=== PATIENT | male | born 1945 | race Caucasian/White ===

== ENCOUNTER 2016-04-09 21:35 | Emergency (ER) | payer MEDICARE, OTHER ==
[2016-04-09 21:35] VITALS: BP 113/80
--- OUTSIDE RECORDS SUMMARY | 2016-04-09 21:51 | XMS REPORT | Continuity of Care Document ---
:1945 Author Organization [facility] ([facility]) Address [address] [place] [address] Phone [phone] Care Team Providers Name Role Phone Chase Padron Primary Care Provider [phone] Source Comments This disclosure is being made pursuant to the Care Everywhere program, applicable federal and state laws, and may not contain all informaitonavailable regarding this patient.[facility] ([facility]) Active Allergies and Adverse Reactions Allergen Noted Date Severity Reactions Comments Penicillins 03/23/2014 Pruritus Confused - Pt states that he doesn't think he is allergic to penicillins Sulfa (Sulfonamide 03/23/2014 OTHER Out of , confused Antibiotics) Current Medications Prescription Sig. Disp. Refills Start Date End Date Status SERTRALINE 50 mg Take 50 mg by mouth 03/12/2014 Suspended tablet daily. simvastatin 20 mg Take 20 mg by mouth Suspended tablet every evening. aspirin 81 mg EC Take 81 mg by mouth Suspended tablet daily. levothyroxine 88 mcg Take 88 mcg by Suspended tablet mouth daily. amiodarone 200 mg Take 200 mg by Suspended tablet mouth daily. carvedilol 3.125 mg Take 3.125 mg by Suspended tablet mouth 2 times daily with meals. pregabalin (LYRICA) Take 300 mg by Suspended 300 mg capsule mouth 2 times daily. ALPRAZOLAM 0.5 mg 0.5 mg 3 times 03/10/2014 Suspended tablet daily as needed. albuterol 2.5 mg/3 mL Use 3 mL by Suspended inhalation solution inhalation every 4 hours as needed. acetaminophen 325 mg Take 2 Tabs by 30 Tab 11 05/06/2014 Suspended tablet mouth every 4 hours as needed. Indications: PAIN apixaban (ELIQUIS) 5 Take 5 mg by mouth Suspended mg tablet 2 times daily budesonide-formoterol Use 2 Puffs by Suspended (SYMBICORT) 80-4.5 inhalation 2 times mcg/Actuation inhaler daily fluticasone 50 Use 2 Sprays into Suspended mcg/Actuation nasal both nostrils daily spray losartan-hydrochlorot Take 1 tablet by Suspended hiazide 50-12.5 mg mouth daily per tablet oxyCODONE-acetaminoph Take 1 tablet by Suspended en 5-325 mg per mouth every 4 hours tablet as needed Do Not exceed 4000 mg of acetaminophen per 24 hours. pantoprazole 40 mg EC Take 40 mg by mouth Suspended tablet daily cholecalciferol Take 1,000 Units by Suspended (VITAMIN D3) 1,000 mouth daily unit tablet Active Problems Problem Noted Date Cerebral aneurysm, nonruptured 05/06/2014 Transient alteration of awareness 03/27/2014 Hypokalemia 03/24/2014 Acute kidney injury 03/24/2014 CAD (coronary artery disease) 03/23/2014 Essential hypertension 03/23/2014 Hypothyroidism due to acquired atrophy of thyroid 03/23/2014 Hyperlipidemia 03/23/2014 Chronic CHF (congestive heart failure) 03/23/2014 Chronic pain 03/23/2014 Systemic inflammatory response syndrome (sirs) of non-infectious origin 2014 with acute organ dysfunction Metabolic encephalopathy 03/23/2014 Urinary retention 03/23/2014 Fever and chills 03/23/2014 Most Recent Encounters Date Type Specialty Providers Description 03/07/2016 Orders/Notes Neurosurgery Roby Anthony MD 03/04/2016 Hospital Encounter Radiology Ivonne Freitas MD Chief Comp: Patient Reported Reason For Visit 02/28/2016 Office Visit Roby Spring MD Dx: Cerebral aneurysm , nonruptured (Primary Dx) 01/31/2016 Office Visit Roby Spring MD Chief Comp: Patient Reported Reason For Visit 01/10/2016 Office Visit Roby Spring MD Chief Comp: Patient Reported Reason For Visit Immunizations Name Dates Previously Given Next Due Influenza, unspecified 03/23/2014,11/30/2013 Pneumococcal, unspecified 11/30/2013 Social History Tobacco Use Types Packs/Day Years Used Date Former Smoker Cigarettes 1.5 50 Quit: 03/02/2013 Smokeless Tobacco: Never Used Tobacco Cessation:Counseling Given: Yes Comments: Alcohol Use Drinks/Week oz/Week Comments No Last Filed Vital Signs Vital Sign Reading Time Taken Blood Pressure 110/70 11/13/2014 12:30 PM CDT Pulse 53 11/13/2014 1:00 PM CDT Temperature 36.1 C (97 F) 11/13/2014 11:30 AM CDT Respiratory Rate 16 11/13/2014 12:30 PM CDT Height 1.85 m (6' 0.83") 11/13/2014 9:04 AM CDT Weight 84.2 kg (185 lb 10 oz) 11/13/2014 9:04 AM CDT Body Mass Index 24.6 11/13/2014 9:04 AM CDT Oxygen Saturation 98% 11/13/2014 1:00 PM CDT Plan of Care Health Maintenance Due Date Last Done Comments Hepatitis B Vaccine (1 of 3 - Primary 1945 Series) Tdap Vaccine 06/10/1958 Lipid Disorder Screening 06/10/1965 Td Vaccine 06/10/1965 Colonoscopy 06/10/1997 Prostate Cancer Screening 06/10/1997 Zoster Vaccine 2007 Pneumococcal Vaccine (1 of 2 - PCV13) 06/10/2012 Influenza Vaccine: Seasonal (#1) 10/01/2015 03/23/2014, 11/30/2013 HCV Screening Completed 03/25/2014 Results from Last [address] - STORE ONLY (03/04/2016 3:40 PM)
== END 2016-04-09 21:45 | disposition left against medical advice (07) ==
LOC: ER 21:35
DX: Z53.21 Procedure and treatment not carried out due to patient leaving prior to being seen by health care provider (principal)

== ENCOUNTER 2016-04-12 07:50 | Emergency (ER) | payer MEDICARE, OTHER ==
--- NOTE | 2016-04-12 08:04 | ERNOTE ---
ER Male HPI Date of Service: 04/12/16 Stated Complaint: CATHETER REMOVED Time Seen by Provider: 04/12/16 07:56 Source: patient Exam Limitations: no limitations Immunizations: IMMUNIZATION HX Immunizations Up to Date Yes History of Influenza Vaccine Yes Hx Pneumococcal Vaccination Yes Allergies/Adverse Reactions: Allergies Sulfa (Sulfonamide Antibiotics) [Sulfa(Sulfonamide Antibiotics)] Allergy (Severe , Verified 06/19/13 07:13) Other confusion Penicillins Allergy (Intermediate, Verified 06/19/13 07:13) Hives Home Medications: HOME MEDICATIONS Acetaminophen [Tylenol] 650 mg PO Q4H PRN 01/13/16 [Last Taken Unknown] Alprazolam [Xanax Xr] 0.5 mg PO QID 01/13/16 [Last Taken Unknown] Apixaban [Eliquis] 5 mg PO BID 01/13/16 [Last Taken Unknown] Bisacodyl [Dulcolax Suppository] 10 mg RC DAILY PRN 01/13/16 [Last Taken Unknown ] Carvedilol [Coreg] 3.125 mg PO DAILY 01/13/16 [Last Taken Unknown] Ferrous Sulfate [Iron] 325 mg PO DAILY 01/13/16 [Last Taken Unknown] Levalbuterol HCl [Xopenex] 0.63 mg IH Q3H PRN 01/13/16 [Last Taken Unknown] Levothyroxine Sodium [Synthroid] 88 mcg PO DAILY 01/13/16 [Last Taken Unknown] Magnesium Hydroxide [Milk Of Magnesia] 30 ml PO DAILY PRN 01/13/16 [Last Taken Unknown] Oxycodone HCl/Acetaminophen [Percocet 10-325 mg Tablet] 1 each PO QID 01/13/16 [ Last Taken Unknown] Polyethylene Glycol 3350 [Miralax] 17 gm PO DAILY 01/13/16 [Last Taken Unknown] - History of Present Illness Narrative: Patient has a jaimes catheter in pending prostate surgery. When he woke up this morning the Jaimes had become dislodged at some point overnignt and wa out. He states he has just been dribbling. No fevers. No abdominal pain. No new Sx. No pain Timing: Present: constant Quality: Present: other - catheter out Onset Location: Present: other - Jaimes Activities at Onset: Present: other - woke up with the problem Prior Abdominal Problems: Present: other - Jaimes in place awaiting Prostate surgery Review of Systems - Review of Systems Constitutional: Absent: chills Respiratory: Present: no symptoms reported Cardiology: Present: no symptoms reported Gastrointestinal/Abdominal: Present: no symptoms reported - Patient's Past Medical History Patient History - Medical: Chronic Pain - on daily Percocet Patient History - Cardiac/Respiratory: Coronary Heart Disease, Hypertension, Myocardial Infarction, Pneumonia Patient History - Cancer: No Hx of Cancer Patient History - Surgical Procedures: Cholecystectomy, Other - Immunizations Immunizations Up to Date: Yes Hx Pneumococcal Vaccination: Yes History of Influenza Vaccine: Yes Physical Exam - Physical Exam General Appearance: Present: alert, no apparent distress Eye Exam: Normal inspection: bilateral, PERRL: bilateral Ears, Nose, Throat: Present: normal ENT inspection Neck: Present: normal inspection Respiratory: Present: no respiratory distress, no accessory muscle use, lungs clear Cardiovascular/Chest: Present: regular rate, rhythm Gastrointestinal/Abdominal: Present: normal bowel sounds, nontender, nondistended, soft Male Genitals Exam: Present: other - Jaimes has come out. No ither grossabnormalities noted. Neurological Exam: Present: alert, no motor/sensory deficits Skin Exam: Present: warm/dry ED Progress - Vital Signs Patient's Vital Signs:: I have reviewed the patient's vital signs. - Progress/Reassessment Progress Note-Subjective: 04/12/16 08:02 Nursing replaced jaimes catheter, no other needs or complaints at this time. I discussed warning signs and reasons to return as well as the need for close f/u. Departure Clinical Impression: Jaiems catheter problem - Departure Disposition: Home self-care Condition: Stable Instructions: Jaimes Catheter Care, Adult Additional Instructions: Call your urologist Thursday with telephone report of what occurred. Return here for fever, trouble with the Jaimes catheter or if your condition worsens or changes in any way.
--- OUTSIDE RECORDS SUMMARY | 2016-04-12 08:06 | XMS REPORT | Continuity of Care Document ---
:1945 Author Organization [employer] [place] [address] Care Team Providers Name Role Phone Jorge Padron Primary Care Provider [phone] Source Comments This disclosure is being made pursuant to the [employer] program and maynot contain all information available regarding this patient.[employer] [facility] [facility] Active Allergies and Adverse Reactions Allergen Noted Date Severity Reactions Comments Hydrochlorothiazide 01/31/2016 Unknown Levaquin 04/01/2016 Low Altered Mental Status Penicillins 11/23/2013 Other (See Comments) Sulfa Antibiotics 11/23/2013 Other (See Comments) Sulfamethoxazole-Trimethoprim 11/23/2013 Other (See Comments) Current Medications Be aware that medications may not be up to date as of this document. Alwaysverify current medications with the patient. Prescription Sig. Disp. Refills Start Date End Date Status albuterol Inhale into Active (PROVENTIL) (2.5 the lungs. 4 MG/3ML) 0.083% puff(s) By nebulizer solution Mouth Daily prn ALPRAZolam (XANAX) Take 0.5 mg Active 0.5 MG tablet by mouth 3 (three) times daily. oxyCODONE-acetaminop Take 10-325 Active hen (PERCOCET) mg by mouth. 10-325 MG per tablet 1 tab(s) By Mouth 4 Times A Day aspirin 81 MG tablet Take 81 mg by Active mouth daily. levothyroxine Take 88 mcg Active (SYNTHROID, by mouth LEVOTHROID) 88 MCG every tablet morning. budesonide-formotero Inhale 2 Active l (SYMBICORT) 80-4.5 puffs into MCG/ACT inhaler the lungs 2 (two) times daily. vitamin D, Take 2,000 Active cholecalciferol, Units by 1000 UNITS tablet mouth daily. apixaban (ELIQUIS) 5 Take 1 tablet 60 tablet 0 11/29/2014 Active MG TABS tablet by mouth 2 (two) times daily. amiodarone TAKE ONE 30 tablet 11 06/21/2015 Active (PACERONE) 200 MG TABLET BY tablet MOUTH EVERY DAY famotidine (PEPCID) Take 1 tablet 06/12/2015 Active 20 MG tablet by mouth daily. losartan-hydrochloro TAKE ONE 30 tablet 11 08/23/2015 Active thiazide (HYZAAR) TABLET BY 50-12.5 MG per MOUTH EVERY tablet DAY bisacodyl (DULCOLAX) Take 5 mg by Active 5 MG EC tablet mouth daily as needed for Constipation. Takes 8 tabs daily simvastatin (ZOCOR) Take 20 mg by Active 20 MG tablet mouth nightly. oxybutynin Take 1 tablet 45 tablet 0 03/31/2016 Active (DITROPAN) 5 MG by mouth 3 7 tablet (three) times daily. FLUoxetine (PROZAC) Take 1 03/26/2016 Active 10 MG capsule capsule by mouth daily. senna 8.6 mg tablet Take 1 tablet Active by mouth daily as needed for Constipation. cephALEXin (KEFLEX) Take 1 15 capsule 0 04/09/2016 Active 500 MG capsule capsule by mouth 3 (three) times daily. fluticasone by Nasal Discontinued (FLONASE) 50 MCG/ACT route. 1 7 nasal spray spray(s) each nostril 2 times per day fluticasone-salmeter Inhale into Discontinued ol the lungs. 1 7 (FLUTICASONE-SALMETE puff(s) By ROL) 250-50 MCG/DOSE Mouth 2 Times AEPB A Day carvedilol (COREG) Take 3.125 mg 05/18/2015 Discontinued 6.25 MG tablet by mouth 7 daily. ondansetron 01/28/2016 Discontinued (ZOFRAN-ODT) 4 MG 7 disintegrating tablet potassium chloride 01/04/2016 Discontinued SA (K-DUR,KLOR-CON) 7 20 MEQ tablet linaclotide Take 1 16 capsule 0 02/04/2016 Discontinued (LINZESS) 290 MCG capsule by 7 capsule mouth every morning before breakfast. linaclotide Take 1 28 capsule 0 02/26/2016 Discontinued (LINZESS) 290 MCG capsule by 7 capsule mouth every morning before breakfast. furosemide (LASIX) Take 20 mg by 12/17/2015 Discontinued 20 MG tablet mouth daily. 7 ciprofloxacin Take 1 tablet 14 tablet 0 03/31/2016 Discontinued (CIPRO) 500 MG by mouth 2 7 tablet (two) times daily. cephALEXin (KEFLEX) Take 1 21 capsule 0 03/31/2016 500 MG capsule capsule by 7 mouth 3 (three) times daily. Hospital, Clinic, or Other Ordered Dose Route Frequency Start Date End Date Status Facility Administered Medication regadenoson (LEXISCAN) 0.4mg IV Once 04/09/2016 04/09/2016 Ended injection Active Problems Problem Noted Date Chest pain 04/01/2016 Dyspnea 04/01/2016 Preop cardiovascular exam 04/01/2016 Hypoxia 04/01/2016 intermediate current use of anticoagulant 04/01/2016 Bladder neck contracture 03/27/2016 COPD without exacerbation (HCC) 03/25/2016 BPH with urinary obstruction 09/04/2015 Retention of urine 09/04/2015 Fall 08/17/2014 Hypotension 08/17/2014 Brain aneurysm 03/14/2014 Personal history of tobacco use, presenting hazards to health 03/24/2013 Overview: Overview: RAJ TONG MD Atrial fibrillation ([facility]) 11/24/2012 Overview: Overview: RAJ TONG MD Primary cardiomyopathy ([facility]) 04/14/2012 Overview: Overview: recovered to normal RAJ TONG MD Coronary atherosclerosis of [place] coronary artery 04/14/2012 Overview: Overview: RAJ TONG MD Hypercholesterolemia 04/14/2012 Overview: Overview: RAJ TONG MD Essential hypertension 04/14/2012 Overview: Overview: RAJ TONG MD Encounter for long-term (current) use of other medications 04/14/2012 Overview: Overview: RAJ TONG MD Postsurgical percutaneous transluminal coronary angioplasty status 04/14/2012 Overview: Overview: RAJ TONG MD Resolved Problems Problem Noted Date Resolved Date Obstructive chronic bronchitis without exacerbation (HCC) 03/25/20162016 Atrial fibrillation (HCC) 04/14/2012 09/05/2015 Overview: Overview: now in NSR RAJ TONG MD Most Recent Encounters Date Type Specialty Providers Description 04/11/2016 Telephone Urology Suzette Fernandez, [facility] 04/10/2016 Clinical Support Urology Jackson Solomon Bladder neck contracture M PASharonC (Primary Dx) 04/10/2016 Orders Only Cardiology Mayra Saavedra Decreased cardiac F, RN ejection fraction (Primary Dx); Abnormal cardiovascular stress test; SOB (shortness of breath); Preop cardiovascular exam 04/10/2016 Telephone UrologSuzette Juan, [facility] arrangements 04/09/2016 Clinical Support Nuclear Medicine Raj Tong Pre-operative MD Deyanira cardiovascular Makeda Bull examination (Primary Dx); M, RT Chest pain, unspecified type 04/09/2016 Office Visit UrologAmrit Muro Preop testing (Primary MD Jillian Dx); Bladder neck contracture; Benign non-nodular prostatic hyperplasia with lower urinary tract symptoms; BPH with urinary obstruction 04/09/2016 Telephone UrologNickie Chavez RN 04/08/2016 Orders Only Provider, Not In System 04/08/2016 Transcribe Orders Nuclear Medicine Makeda Bull Pre-operative M, RT cardiovascular examination (Primary Dx); Chest pain, unspecified type 04/07/2016 Orders Only Provider, Not In System 04/02/2016 Telephone Candice Philippe RN Other 04/02/2016 Telephone Candice Philippe RN Other 04/01/2016 Office Visit Cardiology Raj Tong Chest pain, unspecified FMD type (Primary Dx); Pre-operative cardiovascular examination; Dyspnea on exertion; Preop cardiovascular exam; Hypoxia; Personal history of tobacco use, presenting hazards to health; Encounter for long-term (current) use of other medications; Primary cardiomyopathy (HCC); Hypercholesterolemia; Essential hypertension; Atherosclerosis of [place] coronary artery of [place] heart without angina pectoris; Brain aneurysm 04/01/2016 Clinical Support Amrit Hercules Bladder neck contracture MD Jillian (Primary Dx); Retention of urine; BPH with urinary obstruction 04/01/2016 Telephone Suzette Lewis, [facility] 03/31/2016 Office Visit UrologGalo Brewster bladder Augustin Walsh MD emptying (Primary Dx) 03/31/2016 Refill UrologNickie Chavez RN 03/27/2016 Procedure visit Urology Amrit Lazcano Preop testing (Primary MD Jillian Dx); BPH with urinary obstruction; Bladder neck contracture; Atrial fibrillation, unspecified type (HCC); Primary cardiomyopathy (HCC); Essential hypertension; COPD without exacerbation (HCC); Retention of urine 03/27/2016 Orders Only Provider, Not In System 03/24/2016 Telephone Urology Kirti Brooks, Medication Management RN 03/18/2016 Office Visit Urology Jackson Solomon Urinary hesitancy PATO Olvera (Primary Dx); Slowing of urinary stream 03/17/2016 Telephone Urology Suzette Fernandez Urinary Retention J, [employer] 03/13/2016 Office Visit Urology Jackson Solomon Retention of urine PATO Olvera (Primary Dx); BPH with urinary obstruction 03/13/2016 Telephone Urology Candice Willett RN Telephone Call 03/04/2016 Telephone Gastroenterology Nabil Kang - TC from Pt c/o Mallorie Worley RN abdominal and rectal pain. 02/26/2016 Scanned Document Provider, Not In System 02/26/2016 Telephone Gastroenterology Kayce Giles Medication Management Sharon Hoffman RN PT.'S DAUGHTER CAME IN FOR LINZESS SAMPLES. SENT LINZESS 290 MCG 28 CAPSULES LOT# [id number] EXP. 02/14/2016 Data Import 02/11/2016 Clinical Support Cardiology Raj Tong Atrial fibrillationDeyanira MD unspecified type (HCC) Mara Arevalo, ANAHI 02/11/2016 Office Visit Cardiology Raj Tong F, MD unspecified type (HCC) (Primary Dx); Brain aneurysm; Atherosclerosis of [place] coronary artery of [place] heart without angina pectoris; Essential hypertension; Hypercholesterolemia; Primary cardiomyopathy (HCC); Encounter for long-term (current) use of other medications; Personal history of tobacco use, presenting hazards to health; Postsurgical percutaneous transluminal coronary angioplasty status 02/04/2016 Office Visit Gastroenterology Juju, Drug-induced constipation Latrell Blackmon MD (Primary Dx) 02/04/2016 Telephone Gastroenterology Kayce Giles Medication Management Sharon Hoffman RN LM FOR PT TO CALL OFFICE. 01/31/2016 Abstract Gastroenterology Kayce Giles RN 01/30/2016 Scanned Document Gastroenterology Provider, Not In System 01/28/2016 Telephone Gastroenterology Kang, Other - Pt called Mallorie Worley RN questioning cancelation of March, appt with Dr. Nikita Matute. Social History Tobacco Use Types Packs/Day Years Used Date Former Smoker Smokeless Tobacco: Never Used Tobacco Cessation:Ready to Quit: Yes; Counseling Given: Yes Comments: Alcohol Use Drinks/Week oz/Week Comments No Alcoholic Drinks/day: ALCOHOL USE: NON-DRINKER Last Filed Vital Signs Vital Sign Reading Time Taken Blood Pressure 134/78 04/09/2016 11:25 AM GRAPE CRUSHER Pulse 90 04/01/2016 2:23 PM GRAPE [employer]HER Temperature 36.4 C (97.6 F) 03/18/2016 10:45 AM GRAPE CR[employer]HER Respiratory Rate 20 03/18/2016 10:45 AM GRAPE CRUSHER Height 1.88 m (6' 2") 02/04/2016 2:13 PM GRAPE CR[employer]HER Weight 63.504 kg (140 lb) 04/01/2016 2:23 PM GRAPE CR[employer]HER Body Mass Index 17.97 04/01/2016 2:23 PM GRAPE CR[employer]HER Oxygen Saturation 87% 04/01/2016 2:23 PM GRAPE CRUSHER Plan of Care Patient Goal Type Goal Blood Pressure Blood Pressure below 140/90 Date Type Specialty Providers Description 04/18/2016 Appointment Cardiology 10/13/2016 Appointment Cardiology Raj Tong MD [address] [facility] [place] [phone] (Fax) Health Maintenance Due Date Last Done Comments Hepatitis C Screening 06/10/1965 Tetanus/Pertussis (1 - Tdap) 06/10/1966 Colonoscopy 06/10/1997 Well Adult Visit 06/10/1997 Zoster Vaccine 60+ 2007 AAA Screening (Medicare Covered) 06/10/2012 Pneumococcal Low/Medium Risk 65+ (1 of 2 - PCV13) 06/10/2012 Influenza Immunization (#1) 2015 Results from Last 3 Months NM HEART MUSCLE SPECT MULTIPLE (04/09/2016 2:48 PM) Narrative [facility] [place] [id number] MPI Imaging Report Patient Name: JORGE MADERA MPatient ID: [id number] : 1945Study Date: 04/09/2016 2:48:15 PM Gender: MTech: Height(Inch): Weight(LB): 140 Ref. Physician: KATHI TONGocation: [id number] Quality: Good BSA: Procedures: Pharmacologic SPECT/CT Report.: Patient was NPO, patient did not have any caffeine within the last 12 hours. Myocardial perfusion imaging with Sestamibi SPECT/CT at rest and post regadenoson (Lexiscan) infusion. SPECT/CT images were acquired at approximately one hour after each injection. Images were reformatted in the short axis, vertical, and horizontal long axis planes. Indications: Chest pain. Pre-Op. Findings: Supervising Nurse: Larisa. Supervising Physician: Raj Tong MD. Procedure Data: Patient was injected with the following amount of Sestamibi Tc-99m at rest: 12.4 mCi. Patient was injected with the following amount of Sestamibi Tc-99m at stress: 36.6 mCi. The injection was performed on the following vein: RAC. 0.4mg of Lexiscan was administered. Baseline HR 53. Peak HR 75. Predicted Maximal HR 152. Baseline BP 160/82. Peak BP 160/82. Double Product 9900 BPM*mmHg. Cardiac Symptoms: Stress related symptoms include : nausea and shortness of breath. Symptoms were treated with : rest. ECG Post Pharm: No diagnostic ST changes. defect 1: Location of defect is in the: apical wall and inferior wall. PostStress LV Function and Wall Motion: Left Ventricular Ejection Fraction is 30 %. Study Quality: Poor study quality. Conclusions: No ECG evidence of ischemia. Poor study quality. Myocardial perfusion imaging is abnormal. A fixed transmural perfusion defect is noted in the distal inferolateral wall suggestive of old infarct in probably a dominant LCX distribution. No reversibility or ischemia in that area. Mild apical ischemia. EF calculated at 30%, normal tid ratio. Electronically Signed By: Dr. Raj Tong MD, [facility], [facility] 2016-04-10 08:41:27-0600 Electronically Signed By: Dr. Raj Tong MD, [facility], [facility] 2016-04-10 08:41:37-0600 CC: CC: Procedure Note Naeem, External Ris In - Jyoti Apr 10, 2016 8:42 [place] [address] MPI Imaging Report Patient Name: JORGE MADERA MPatient ID: [id number] : 1945Study Date: 04/09/2016 2:48:15 PM Gender: [facility]: Height(Inch): Weight(LB): 140 Ref. Physician: KATHI TONGocation: [id number] Quality: Good BSA: Procedures: Pharmacologic SPECT/CT Report.: Patient was NPO, patient did not have any caffeine within the last 12 hours. Myocardial perfusion imaging with Sestamibi SPECT/CT at rest and post regadenoson (Lexiscan) infusion. SPECT/CT images were acquired at approximately one hour after each injection. Images were reformatted in the short axis, vertical, and horizontal long axis planes. Indications: Chest pain. Pre-Op. Findings: Supervising Nurse: Larisa. Supervising Physician: Raj Tong MD. Procedure Data: Patient was injected with the following amount of Sestamibi Tc-99m at rest: 12.4 mCi. Patient was injected with the following amount of Sestamibi Tc-99m at stress: 36.6 mCi. The injection was performed on the following vein: RAC. 0.4mg of Lexiscan was administered. Baseline HR 53. Peak HR 75. Predicted Maximal HR 152. Baseline BP 160/82. Peak BP 160/82. Double Product 9900 BPM*mmHg. Cardiac Symptoms: Stress related symptoms include : nausea and shortness of breath. Symptoms were treated with : rest. ECG Post Pharm: No diagnostic ST changes. defect 1: Location of defect is in the: apical wall and inferior wall. PostStress LV Function and Wall Motion: Left Ventricular Ejection Fraction is 30 %. Study Quality: Poor study quality. Conclusions: No ECG evidence of ischemia. Poor study quality. Myocardial perfusion imaging is abnormal. A fixed transmural perfusion defect is noted in the distal inferolateral wall suggestive of old infarct in probably a dominant LCX distribution. No reversibility or ischemia in that area. Mild apical ischemia. EF calculated at 30%, normal tid ratio. Electronically Signed By: Dr. Raj Tong MD, [facility], [facility] 2016-04-10 08:41:27-0600 Electronically Signed By: Dr. Raj Tong MD, [facility], [facility] 2016-04-10 08:41:37-0600 CC: CC: Urine culture (04/09/2016 11:44 AM)Only the most recent of3 resultswithin the time period is included. Component Value Range Urine Culture, Routine Microbiology resultsComment: CARLOS TYPE Cath RESULT NO GROWTH Specimen Urine,Straight Cath Narrative Testing performed at [facility], [address] [place] [address].Counter [employer] Micha Mar MD Specimen: UACUL Urinalysis with microscopic (04/01/2016 2:07 PM)Only the most recent of2 resultswithin the time period is included. Component Value Range *CARLOS TYPE Cath Color, Fluid [place](A) Yellow Clarity, Fluid Turbid(A) Clear Specific [place] 1.023 1.001-1.035 pH 7.5 5.0-8.0 Leukocyte Esterase, UA 2+(A) Negative Nitrite Negative Negative Protein 2+(A) Negative Glucose, Urinalysis Negative Negative Ketones, UA Negative Negative Urobilinogen Negative Negative Bilirubin Urine Negative Negative Blood 3+(A) Negative WBC 151-200(A)Comment:Culture ordered by lab if not 0-2 already ordered by physician. RBC >50(A) 0-2 Epithelial Cells, Fluid None <2+ Bacteria Rare None Specimen Urine Hernandez Cath Narrative Testing performed at [facility], [address] [place] [address].[employer] Micha Mar MD Specimen: UACUL Measure post void residual (03/27/2016)Only the most recent of2 resultswithin the time period is included.CBC auto differential (03/25/2016) Component Value Range WBC Count 5.9 10^3/mL RBC 3.98 10^6/L Hemoglobin 11.4 g/dL Hematocrit 35.3 % Platelets 277 K/L Specimen BLOOD Narrative See scanned result 03/25/16 XR CHEST 2 VIEWS PA AND LAT (03/25/2016)Basic metabolic panel (03/13/2016 1:42 PM) Component Value Range Glucose 103(H)Comment: 60-100 mg/dL Fasting Plasma Glucose (FPG)<100 MG/DL Impaired Fasting Glucose (IFG) 100-125 MG/DL Provisional Diagnosis of Diabetes Mellitus > yl=170 MG/DL (Diagnosis Must Be Confirmed) BUN, Blood 14 8-26 mg/dL Creatinine 0.8 0.7-1.4 mg/dL Glomerular Filtration Rate 92 >80 mL/min/1.73mm2 Estimate Glomerlular Filtration Rate 107Comment:The estimated GFR >80 mL/min/1.73mm2 Estimate- has not been validated for women or patients with serious comorbid conditions, or with extremes of body size, muscle mass, or nutritional status. Calcium 9.3 8.4-10.2 mg/dL Sodium 136 136-145 mmol/L Potassium 4.1 3.4-4.9 mmol/L Chloride 101 99-111 mmol/L CO2 25.4 21.0-32.0 mmol/L Narrative Testing performed at [facility], [address] [place] [address].Counter Clerk [employer] Micha Mar MD EKG 12 lead (02/11/2016 2:02 PM) Narrative Vent Rate: 51 bpm RR Interval: 1157 msec OH Interval: 208 msec QRS Duration: 100 msec QT Interval: 484 msec QTC Interval: 462 msec P-R-T Morley: 70 - -16 - 18 degrees SINUS BRADYCARDIA INFERIOR MYOCARDIAL INFARCTION , PROBABLY OLD WITH POSTERIOR EXTENSION[40+ ms Q WAVE AND/OR ST/T ABNORMALITY IN II/aVFPROMINE ABNORMAL ECG2] Electronically Signed By: Dr. Raj Tong MD, FACC, CCDS Procedure Note Naeem, External Ris In - ThuFeb 11, 2016 2:24 PM GRAPE [employer]HER Vent Rate: 51 bpm RR Interval: 1157 msec OH Interval: 208 msec QRS Duration: 100 msec QT Interval: 484 msec QTC Interval: 462 msec P-R-T [place]: 70 - -16 - 18 degrees SINUS BRADYCARDIA INFERIOR MYOCARDIAL INFARCTION , PROBABLY OLD WITH POSTERIOR EXTENSION [40+ ms Q WAVE AND/OR ST/T ABNORMALITY IN II/aVFPROMINE ABNORMAL ECG2] Electronically Signed By: Dr. Raj Tong MD, FACC, CCDS
--- OUTSIDE RECORDS SUMMARY | 2016-04-12 08:06 | XMS REPORT | Continuity of Care Document ---
:1945 Author Organization [facility] ([facility]) Address [address] [place] [address] Phone [phone] Care Team Providers Name Role Phone Chase Padron Primary Care Provider [phone] Source Comments This disclosure is being made pursuant to the Care Everywhere program, applicable federal and state laws, and may not contain all informaitonavailable regarding this patient.[facility] ([facility]) Active Allergies and Adverse Reactions Allergen Noted [...] , nonruptured (Primary Dx) 01/31/2016 Office Visit Neurosurgery Roby Anthony MD Chief Comp: Patient Reported Reason For [...]
[2016-04-12 08:10] VITALS: BP 151/89
== END 2016-04-12 08:10 | disposition home or self-care (01) ==
LOC: ER 07:50
PROC: 0T9B70Z Drainage of Bladder with Drainage Device, Via Natural or Artificial Opening (ICD-10-PCS; principal; 2016-04-12)
DX: T83.038D Leakage of other urinary catheter, subsequent encounter (principal)

== ENCOUNTER 2016-04-14 16:46 | Emergency (ER) | payer MEDICARE, OTHER ==
[2016-04-14 16:58] VITALS: BP 154/92
--- OUTSIDE RECORDS SUMMARY | 2016-04-14 17:13 | XMS REPORT | Continuity of Care Document ---
:1945 Author Organization [employer] Address [place] [address] Care Team Providers Name Role Phone Jorge Padron Primary Care Provider [phone] Source Comments This disclosure is being made pursuant to the [employer] program and maynot contain all information available regarding this patient.[employer] Active Allergies and Adverse Reactions Allergen Noted [...] 04/01/2016 Preop cardiovascular exam 04/01/2016 Hypoxia 04/01/2016 jail current use of anticoagulant 04/01/2016 Bladder neck contracture 03/27/2016 COPD without exacerbation (HCC) 03/25/2016 BPH with urinary obstruction 09/04/2015 Retention of urine 09/04/2015 Fall 08/17/2014 Hypotension 08/17/2014 Brain aneurysm 03/14/2014 Personal history of tobacco use, presenting hazards to health 03/24/2013 Overview: Overview: RAJ TONG MD Atrial fibrillation ([facility]) 11/24/2012 Overview: Overview: RAJ TONG MD Primary cardiomyopathy ([facility]) 04/14/2012 Overview: Overview: recovered to normal RAJ TONG MD Coronary atherosclerosis of [place] coronary artery 04/14/2012 Overview: Overview: RAJ TONG [...] Recent Encounters Date Type Specialty Providers Description 04/14/2016 Telephone Urology Kirti Brooks Other RN 04/11/2016 Telephone Urology Suzette Fernandez, [facility] 04/10/2016 Clinical Support Urology Jackson Solomon Bladder neck contracture PATO Olvera (Primary Dx) 04/10/2016 Orders Only Cardiology Quentin Mayra Decreased cardiac F, RN ejection fraction (Primary Dx); Abnormal cardiovascular stress test; SOB (shortness of breath); Preop cardiovascular exam 04/10/2016 Telephone UrologSuzette Juan surgical Ryan, [employer] arrangements 04/09/2016 Clinical Support Nuclear Medicine Raj Tong Pre-operative FMD cardiovascular Makeda Bull examination (Primary Dx); M, RT Chest pain, unspecified type 04/09/2016 Office Visit Urology Amrit Lazcano Preop testing (Primary Jillian, Dx); Bladder neck contracture; Benign non-nodular prostatic hyperplasia with lower urinary tract symptoms; BPH with urinary obstruction 04/09/2016 Telephone Urology Nickie Camacho RN 04/08/2016 Orders Only Provider, Not In System 04/08/2016 Transcribe Orders Nuclear Medicine Makeda Bull Pre-operative M, RT cardiovascular examination (Primary Dx); Chest pain, unspecified type 04/07/2016 Orders Only Provider, Not In System 04/02/2016 Telephone UrologCandice Viveros RN Other 04/02/2016 Telephone UrologCandice Viveros RN Other 04/01/2016 Office Visit Cardiology Raj Tong Chest pain, unspecified FMD type (Primary Dx); Pre-operative cardiovascular examination; Dyspnea on exertion; Preop cardiovascular exam; Hypoxia; Personal history of tobacco use, presenting hazards to health; Encounter for long-term (current) use of other medications; Primary cardiomyopathy (HCC); Hypercholesterolemia; Essential hypertension; Atherosclerosis of [place] coronary artery of [place] heart without angina pectoris; Brain aneurysm 04/01/2016 Clinical Support UrologAmrit Muro Bladder neck contracture MD Jillian (Primary Dx); Retention of urine; BPH with urinary obstruction 04/01/2016 Telephone UrologSuzette Juan, [facility] 03/31/2016 Office Visit Urology Galo Taylor bladder Augustin Walsh MD emptying (Primary Dx) 03/31/2016 Refill Urology Nickie Camacho RN 03/27/2016 Procedure visit Urology Amrit Lazcano Preop testing (Primary E, Dx); BPH with urinary obstruction; Bladder neck [...] Telephone Urology Suzette Fernandez Urinary Retention J, [employer] 03/13/2016 Office Visit Urology Jackson Solomon Retention of urine PATO Olvera (Primary Dx); BPH with urinary obstruction 03/13/2016 Telephone Urology Candice Willett RN Telephone Call 03/04/2016 Telephone Gastroenterology Nabil Kang - TC from Pt c/o Mallorie Worley RN abdominal and rectal pain. 02/26/2016 Scanned Document Provider, Not In System 02/26/2016 Telephone Gastroenterology Kayce Giles Medication Management - Dalton, RN PT.'S DAUGHTER CAME IN FOR LINZESS SAMPLES. SENT LINZESS 290 MCG 28 CAPSULES LOT# [id number] . 02/14/2016 Data Import 02/11/2016 Clinical Support Cardiology Raj Tong F, MD unspecified type (HCC) Mara Arevalo RDCS 02/11/2016 Office Visit Cardiology Raj Tong Atrial fibrillationDeyanira MD unspecified type (HCC) (Primary Dx); Brain aneurysm; Atherosclerosis of [place] coronary artery of [place] heart without angina pectoris; Essential hypertension; Hypercholesterolemia; Primary cardiomyopathy (HCC); Encounter for long-term (current) use of other medications; Personal history of tobacco use, presenting hazards to health; Postsurgical percutaneous transluminal coronary angioplasty status 02/04/2016 Office Visit Gastroenterology Juju, Drug-induced constipation Latrell Blackmon MD (Primary Dx) 02/04/2016 Telephone Gastroenterology Kayce Giles Medication Management Sharon Hoffman, RN LM FOR PT TO CALL OFFICE. 01/31/2016 Abstract Gastroenterology Kayce Giles RN 01/30/2016 Scanned Document Gastroenterology Provider, Not In System 01/28/2016 Telephone Gastroenterology Pearl, Other - Pt called Mallorie Worley RN [...] Taken Blood Pressure 134/78 04/09/2016 11:25 AM SERVICE VEHICLE OPERATOR Pulse 90 04/01/2016 2:23 PM SERVICE VEHICLE OPERATOR Temperature 36.4 C (97.6 F) 03/18/2016 10:45 AM SERVICE VEHICLE OPERATOR Respiratory Rate 20 03/18/2016 10:45 AM SERVICE VEHICLE OPERATOR Height 1.88 m (6' 2") 02/04/2016 2:13 PM SERVICE VEHICLE OPERATOR Weight 63.504 kg (140 lb) 04/01/2016 2:23 PM SERVICE VEHICLE OPERATOR Body Mass Index 17.97 04/01/2016 2:23 PM SERVICE VEHICLE OPERATOR Oxygen Saturation 87% 04/01/2016 2:23 PM SERVICE VEHICLE OPERATOR Plan of Care Patient Goal Type Goal Blood Pressure Blood Pressure below 140/90 Date Type Specialty Providers Description 04/18/2016 Appointment Cardiology 10/13/2016 Appointment Cardiology Raj Tong MD [facility] [place] [phone] (Fax) Health Maintenance Due Date Last Done [...] PM) Narrative [facility] [place] [id number] MPI Imaging Report Patient Name: JORGE MADERA MPatient ID: [id number] : 1945Study Date: 04/09/2016 2:48:15 PM Gender: ILech: Height(Inch): Weight(LB): 140 Ref. Physician: KATHI TONGocation: [...] Electronically Signed By: Dr. Raj Tong MD, [facility], [facility] 2016-04-10 08:41:27-0600 Electronically Signed By: Dr. Raj Tong MD, [facility], [facility] 2016-04-10 08:41:37-0600 CC: CC: Procedure Note Naeem, External Ris In - Jyoti Apr 10, 2016 8:42 [place] [address] MPI Imaging Report Patient Name: JORGE MADERA MPatient ID: [id number] : 1945Study Date: 04/09/2016 2:48:15 PM Gender: [facility]: Height(Inch): Weight(LB): 140 Ref. Physician: KATHI TONGocation: [...] Electronically Signed By: Dr. Raj Tong MD, [facility], [facility] 2016-04-10 08:41:27-0600 Electronically Signed By: Dr. Raj Tong MD, [facility], [facility] 2016-04-10 08:41:37-0600 CC: CC: Urine culture (04/09/2016 11:44 AM)Only the most recent of3 resultswithin the time period is included. Component Value Range Urine Culture, Routine Microbiology resultsComment: CARLOS TYPE Cath RESULT NO GROWTH Specimen Urine,Straight Cath Narrative Testing performed at [facility], [address] [place] [address].Quality Control Expert Micha Mar MD Specimen: UACUL Urinalysis with microscopic (04/01/2016 2:07 PM)Only the most recent of2 resultswithin the time period is included. Component Value Range *CARLOS TYPE Cath Color, Fluid Smith(A) Yellow Clarity, Fluid Turbid(A) Clear Specific Denio 1.023 1.001-1.035 pH 7.5 5.0-8.0 Leukocyte Esterase, [...] Urine Hernandez Cath Narrative Testing performed at [facility], [address] [place] [address].Quality Control Expert Micha Mar MD Specimen: UACUL Measure post [...] MG/DL Provisional Diagnosis of Diabetes Mellitus > he=159 MG/DL (Diagnosis Must Be Confirmed) BUN, Blood [...] 25.4 21.0-32.0 mmol/L Narrative Testing performed at [facility], [address] [place] [address].Quality Control Expert Micha Mar MD EKG 12 lead (02/11/2016 2:02 PM) Narrative Vent Rate: 51 bpm RR Interval: 1157 msec [place] Interval: 208 msec QRS Duration: 100 msec QT Interval: 484 msec QTC Interval: 462 msec P-R-T [place]: 70 - -16 - 18 degrees SINUS BRADYCARDIA INFERIOR MYOCARDIAL INFARCTION , PROBABLY OLD WITH POSTERIOR EXTENSION[40+ ms Q WAVE AND/OR ST/T ABNORMALITY IN II/aVFPROMINE ABNORMAL ECG2] Electronically Signed By: Dr. Raj Tong MD, FACC, CCDS Procedure Note Naeem, External Ris In - ThuFeb 11, 2016 2:24 PM SERVICE VEHICLE OPERATOR Vent Rate: 51 bpm RR Interval: 1157 msec [place] Interval: 208 msec QRS Duration: 100 msec QT Interval: 484 msec QTC Interval: 462 msec P-R-T [place]: 70 - -16 - 18 degrees SINUS BRADYCARDIA INFERIOR MYOCARDIAL INFARCTION , PROBABLY OLD WITH POSTERIOR EXTENSION [40+ ms Q WAVE AND/OR ST/T ABNORMALITY IN II/aVFPROMINE ABNORMAL ECG2] Electronically Signed By: Dr. Raj Tong MD, FACC, CCDS
--- OUTSIDE RECORDS SUMMARY | 2016-04-14 17:14 | XMS REPORT | Continuity of Care Document ---
:1945 Author Organization [facility] ([facility]) Address [address] [place] [address] Phone [phone] Care Team Providers Name Role Phone Chase Padron Primary Care Provider [phone] Source Comments This disclosure is being made pursuant to the Care Everywhere program, applicable federal and state laws, and may not contain all informaitonavailable regarding this patient.[facility] ([facility]) Active Allergies and Adverse Reactions Allergen Noted [...]
--- NOTE | 2016-04-14 17:25 | ERNOTE ---
ER Male HPI Stated Complaint: CATHETOR PROBLEM ER Male: other - catheder problem Time Seen by Provider: 04/14/16 17:04 Source: patient Exam Limitations: no limitations Immunizations: IMMUNIZATION HX Immunizations Up to Date Yes History of Influenza Vaccine Yes Hx Pneumococcal Vaccination Yes Allergies/Adverse Reactions: Allergies Sulfa (Sulfonamide Antibiotics) [Sulfa(Sulfonamide Antibiotics)] Allergy (Severe , Verified 04/14/16 16:58) Other confusion Penicillins Allergy (Intermediate, Verified 04/14/16 16:58) Hives Home Medications: HOME MEDICATIONS Acetaminophen [Tylenol] 650 mg PO Q4H PRN 01/13/16 [Last Taken Unknown] Alprazolam [Xanax Xr] 0.5 mg PO QID 01/13/16 [Last Taken Unknown] Apixaban [Eliquis] 5 mg PO BID 01/13/16 [Last Taken Unknown] Bisacodyl [Dulcolax Suppository] 10 mg RC DAILY PRN 01/13/16 [Last Taken Unknown ] Carvedilol [Coreg] 3.125 mg PO DAILY 01/13/16 [Last Taken Unknown] Ferrous Sulfate [Iron] 325 mg PO DAILY 01/13/16 [Last Taken Unknown] Levalbuterol HCl [Xopenex] 0.63 mg IH Q3H PRN 01/13/16 [Last Taken Unknown] Levothyroxine Sodium [Synthroid] 88 mcg PO DAILY 01/13/16 [Last Taken Unknown] Magnesium Hydroxide [Milk Of Magnesia] 30 ml PO DAILY PRN 01/13/16 [Last Taken Unknown] Oxycodone HCl/Acetaminophen [Percocet 10-325 mg Tablet] 1 each PO QID 01/13/16 [ Last Taken Unknown] Polyethylene Glycol 3350 [Miralax] 17 gm PO DAILY 01/13/16 [Last Taken Unknown] - History of Present Illness Narrative: Patient had laser prostate surgery about 18 months ago in [place] for BPH.At first his urinary symptoms improved but than he started to have urinary retention again. He currently has an indwelling jaimes pending surgery in [place] again next months. Due to the prior surgery the catheter has gotten displace a few times and he had to have it replaced about 3-4 times, last in this ER two days ago. The patient states that he feels like catheter is falling out again and not draining properly causing pressure in his abdomen Timing: Present: constant Quality: Present: mild Associated Symptoms: Present: denies symptoms. Absent: fever/chills, diaphoresis, nausea, vomiting, dysuria Prior Treatment: Present: recently seen Review of Systems - Review of Systems Constitutional: Absent: fever ENT: Absent: nose congestion, sore throat Respiratory: Absent: shortness of breath, cough Cardiology: Absent: chest pain Gastrointestinal/Abdominal: Present: abdominal pain - pressure. Absent: nausea , vomiting Genitourinary: Present: See HPI Neurological: Absent: headache - Patient's Past Medical History Patient History - Medical: Chronic Pain, Other - BPH Patient History - Cardiac/Respiratory: Coronary Heart Disease, Hypertension, Myocardial Infarction, Pneumonia Patient History - Cancer: No Hx of Cancer Patient History - Surgical Procedures: Cholecystectomy, Other Patient History - Other: None - Social History Living Situations: home Abuse History: No History of abuse Psych History: No pertinent hx Alcohol Use: none Drug Use: none - Immunizations Immunizations Up to Date: Yes Hx Pneumococcal Vaccination: Yes History of Influenza Vaccine: Yes Physical Exam - Physical Exam General Appearance: Present: wd/wn, alert, no apparent distress Respiratory: Present: no respiratory distress, decreased breath sounds, wheezing - few Cardiovascular/Chest: Present: regular rate, rhythm, no murmur Gastrointestinal/Abdominal: Present: normal bowel sounds, nondistended, tenderness - mild throughout, max suprapubic Male Genitals Exam: Present: normal genitalia, other - catheter in place, does not dislodge with gentle traction Neurological Exam: Present: alert, oriented, normal mood/affect Skin Exam: Present: normal color, warm/dry ED Progress - Vital Signs Patient's Vital Signs:: I have reviewed the patient's vital signs. Vital Signs: Vital Signs 04/14/16 16:53 Temperature 36.2 C L Pulse Rate 75 Respiratory 12 Rate Blood Pressure 154/92 O2 Sat by Pulse 96 Oximetry - Progress/Reassessment Chief Complaint: Genitourinary Problem Progress Note-Subjective: 04/14/16 17:48 bladder scan shows no urine in bladder, catheter flushes and drains well explained to patient that frequent changes increase trauma and risk of infection , patient is VERY adamant that he wants his jaimes replaced, has follow up with urologist in two days will have the nurse replace catheter Departure Clinical Impression: Urinary retention due to benign prostatic hyperplasia Jaimes catheter problem Qualifiers: Encounter type: subsequent encounter Qualified Code(s): T83.9XXD - Unspecified complication of genitourinary prosthetic device, implant and graft, subsequent encounter - Departure Disposition: Home self-care Condition: Good Instructions: Jaimes Catheter Care, Adult, Mgcg-hi-Lfvd Additional Instructions: follow up with your urologist as scheduled Referrals: [Primary Care Provider] -
== END 2016-04-14 18:10 | disposition home or self-care (01) ==
LOC: ER 16:46
PROC: BT40ZZZ Ultrasonography of Bladder (ICD-10-PCS; principal; 2016-04-14)
DX: N40.1 Benign prostatic hyperplasia with lower urinary tract symptoms (principal); R33.8 Other retention of urine; T83.9XXD Unspecified complication of genitourinary prosthetic device, implant and graft, subsequent encounter

== ENCOUNTER 2016-04-24 05:11 | Emergency (ER) | payer MEDICARE, OTHER ==
[2016-04-24 05:19] VITALS: BP 149/85
--- NOTE | 2016-04-24 05:44 | ERNOTE ---
Abdominal HPI - General Chief Complaint: Constipation Time Seen by Provider: 04/24/16 05:37 Source: patient Exam Limitations: no limitations - Immun/Allergies/Home Medications Immunizatons: IMMUNIZATION HX Immunizations Up to Date Yes History of Influenza Vaccine Yes Hx Pneumococcal Vaccination Yes Allergies/Adverse Reactions: Allergies Sulfa (Sulfonamide Antibiotics) [Sulfa(Sulfonamide Antibiotics)] Allergy (Severe , Verified 04/14/16 16:58) Other confusion Penicillins Allergy (Intermediate, Verified 04/14/16 16:58) Hives Home Medications: HOME MEDICATIONS Acetaminophen [Tylenol] 650 mg PO Q4H PRN 01/13/16 [Last Taken Unknown] Alprazolam [Xanax Xr] 0.5 mg PO QID 01/13/16 [Last Taken Unknown] Apixaban [Eliquis] 5 mg PO BID 01/13/16 [Last Taken Unknown] Bisacodyl [Dulcolax Suppository] 10 mg RC DAILY PRN 01/13/16 [Last Taken Unknown ] Carvedilol [Coreg] 3.125 mg PO DAILY 01/13/16 [Last Taken Unknown] Ferrous Sulfate [Iron] 325 mg PO DAILY 01/13/16 [Last Taken Unknown] Levalbuterol HCl [Xopenex] 0.63 mg IH Q3H PRN 01/13/16 [Last Taken Unknown] Levothyroxine Sodium [Synthroid] 88 mcg PO DAILY 01/13/16 [Last Taken Unknown] Magnesium Hydroxide [Milk Of Magnesia] 30 ml PO DAILY PRN 01/13/16 [Last Taken Unknown] Oxycodone HCl/Acetaminophen [Percocet 10-325 mg Tablet] 1 each PO QID 01/13/16 [ Last Taken Unknown] Polyethylene Glycol 3350 [Miralax] 17 gm PO DAILY 01/13/16 [Last Taken Unknown] - History of Present Illness Narrative: Pt states he is constipated. He has tried "a laxative" x4 with no relief. Timing: getting worse Quality: moderate Associated Symptoms: Present: denies symptoms Review of Systems - Review of Systems Constitutional: Absent: recent illness, fever EYE: Present: no symptoms reported ENT: Present: no symptoms reported Respiratory: Present: no symptoms reported Cardiology: Present: no symptoms reported Gastrointestinal/Abdominal: Present: nausea, constipation, eating less Genitourinary: Present: no symptoms reported Musculoskeletal: Present: no symptoms reported Skin: Present: no symptoms reported Neurological: Present: no symptoms reported Endocrine: Present: no symptoms reported - Patient's Past Medical History Patient History - Medical: Chronic Pain, Other Patient History - Cardiac/Respiratory: Coronary Heart Disease, Hypertension, Myocardial Infarction, Pneumonia Patient History - Cancer: No Hx of Cancer Patient History - Surgical Procedures: Cholecystectomy, Other Patient History - Other: None - Social History Living Situations: spouse Abuse History: No History of abuse Psych History: No pertinent hx Smoking Status: Current every day smoker Alcohol Use: none Drug Use: none - Immunizations Immunizations Up to Date: Yes Hx Pneumococcal Vaccination: Yes History of Influenza Vaccine: Yes Physical Exam - Physical Exam General Appearance: Present: wd/wn, alert, no apparent distress Eye Exam: Normal inspection: bilateral Ears, Nose, Throat: Present: normal ENT inspection, hearing grossly normal Respiratory: Present: no respiratory distress, no accessory muscle use Gastrointestinal/Abdominal: Present: tenderness - LLQ mild , abnormal bowel sounds - hyperactive. Absent: distended, guarding, rebound Back Exam: Present: normal inspection Neurological Exam: Present: alert, oriented, normal mood/affect Skin Exam: Present: normal color, warm/dry ED Progress - Vital Signs Vital Signs: Vital Signs 04/24/16 05:11 Temperature 36.2 C L Pulse Rate 70 Respiratory 16 Rate Blood Pressure 149/85 O2 Sat by Pulse 93 Oximetry - X-Ray X-Ray #1 X-Ray: abdomen Interpretation: Interp. by me X-ray Comments: Moderate fecal retention. No a/f levels or evidence of obstruction - Progress/Reassessment Chief Complaint: Constipation Progress:: Unchanged Progress Note-Subjective: 04/24/16 06:07 Pt was given Milk of magnesia and we were preparing to give a fleets enema. Pt came out of the exam room with is jacket on and said "give me an AMA, you are not doing anything for me". Nursing tried to talk with him but he was unwilling to go back into his room and signed an AMA form and quickly left. Departure - Departure Clinical Impression: Constipation by delayed colonic transit Disposition: Against medical advice Condition: Good Referrals: [Primary Care Provider] -
[2016-04-24] MEDS ORDERED: MAGNESIUM HYDROXIDE 30 ML UDC PO ONE (06:01)
[2016-04-24] MEDS ORDERED: MAGNESIUM HYDROXIDE 30 ML UDC ONE (06:03)
--- OUTSIDE RECORDS SUMMARY | 2016-04-24 06:07 | XMS REPORT | Continuity of Care Document ---
:1945 Author Organization [facility] ([facility]) Address [address] [place] [address] Phone [phone] Care Team Providers Name Role Phone Chase Padron Primary Care Provider [phone] Source Comments This disclosure is being made pursuant to the Care Everywhere program, applicable federal and state laws, and may not contain all informaitonavailable regarding this patient.[facility] ([facility]) Active Allergies and Adverse Reactions Allergen Noted [...]
--- OUTSIDE RECORDS SUMMARY | 2016-04-24 06:07 | XMS REPORT | Continuity of Care Document ---
:1945 Author Organization [facility] [place] [address] Care Team Providers Name Role Phone Jorge Padron Primary Care Provider [phone] Source Comments This disclosure is being made pursuant to the [employer] program and maynot contain all information available regarding this patient.[facility] Active Allergies and Adverse Reactions Allergen Noted [...] Active 20 MG tablet by mouth daily. bisacodyl (DULCOLAX) Take 5 mg by Active 5 MG EC tablet mouth daily as needed for Constipation. Takes 8 tabs daily simvastatin (ZOCOR) Take 20 mg by Active 20 MG tablet mouth nightly. FLUoxetine (PROZAC) Take 1 03/26/2016 Active 10 MG capsule capsule by mouth daily. senna 8.6 mg tablet Take 1 tablet Active by mouth daily as needed for Constipation. cephALEXin (KEFLEX) Take 1 15 capsule 0 04/09/2016 Active 500 MG capsule capsule by mouth 3 (three) times daily. losartan-hydrochloro Take 1 tablet 30 tablet 11 04/21/2016 Active thiazide (HYZAAR) by mouth 50-12.5 MG per daily. tablet fluticasone by Nasal Discontinued (FLONASE) 50 MCG/ACT route. 1 7 nasal spray spray(s) each nostril 2 times per day fluticasone-salmeter Inhale into Discontinued ol the lungs. 1 7 (FLUTICASONE-SALMETE puff(s) By ROL) 250-50 MCG/DOSE Mouth 2 Times AEPB A Day carvedilol (COREG) Take 3.125 mg 05/18/2015 Discontinued 6.25 MG tablet by mouth 7 daily. losartan-hydrochloro TAKE ONE 30 tablet 11 08/23/2015 Discontinued thiazide (HYZAAR) TABLET BY 7 50-12.5 MG per MOUTH EVERY tablet DAY ondansetron 01/28/2016 Discontinued (ZOFRAN-ODT) 4 MG 7 [...] Discontinued 20 MG tablet mouth daily. 7 oxybutynin Take 1 tablet 45 tablet 0 03/31/2016 (DITROPAN) 5 MG by mouth 3 7 tablet (three) times daily. 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..] Recent Encounters Date Type Specialty Providers Description 04/22/2016 Telephone UrologSuzette Juan, [facility] 04/21/2016 Refill Cardiology Cutisrael, Medication Refill Tory, [facility] 04/18/2016 Clinical Support Cardiology Raj Tong Decreased cardiac FMD ejection fraction; Dong, Abnormal cardiovascular Jag P, RT stress test; SOB (shortness of breath); Preop cardiovascular exam 04/15/2016 Clinical Support Urology Amrit Lazcano Bladder neck contracture MD Jillian (Primary Dx); Incomplete bladder emptying 04/14/2016 Telephone Urology Kirti Brooks Other RN 04/11/2016 Telephone UrologSuzette Juan, [facility] 04/10/2016 Clinical Support Urology Jackson Solomon Bladder neck contracture M, PA-C (Primary Dx) 04/10/2016 Orders Only Cardiology Mayra Saavedra Decreased cardiac F, RN ejection fraction (Primary Dx); Abnormal cardiovascular stress test; SOB (shortness of breath); Preop cardiovascular exam 04/10/2016 Telephone UrologSuzette Juan - surgical J, PEACE OFFICER arrangements 04/09/2016 Clinical Support Nuclear Medicine Raj Tong Pre-operative MD Deyanira cardiovascular Makeda Bull examination (Primary Dx); M, RT Chest pain, unspecified type 04/09/2016 Office Visit Urology Amrit Lazcano Preop testing (Primary MD Jillian Dx); Bladder neck contracture; Benign non-nodular prostatic hyperplasia with lower urinary tract symptoms; BPH with urinary obstruction 04/09/2016 Telephone Urology Nickie Camacho RN 04/08/2016 Orders Only Provider, Not In System 04/08/2016 Transcribe Orders Nuclear Medicine Makeda Bull Pre-operative M, RT cardiovascular examination (Primary Dx); Chest pain, unspecified type 04/07/2016 Orders Only Provider, Not In System 04/02/2016 Telephone Urology Candice Willtet, RN Other 04/02/2016 Telephone Urology Candice Willett RN Other 04/01/2016 Office Visit Cardiology Raj Tong Chest pain, unspecified FMD type (Primary Dx); Pre-operative cardiovascular examination; Dyspnea on exertion; Preop cardiovascular exam; Hypoxia; Personal history of tobacco use, presenting hazards to health; Encounter for long-term (current) use of other medications; Primary cardiomyopathy (HCC); Hypercholesterolemia; Essential hypertension; Atherosclerosis of [place] coronary artery of [place] heart without angina pectoris; Brain aneurysm 04/01/2016 Clinical Support Urology Amrit Lazcano Bladder neck contracture MD Jillian (Primary Dx); Retention of urine; BPH with urinary obstruction 04/01/2016 Telephone Urology Suzette Fernandez Other Ryan, [employer]ACE [employer]ER 03/31/2016 Office Visit Urology Brandon, Incomplete bladder Augustin Walsh MD emptying (Primary Dx) 03/31/2016 Refill Urology Nickie Camacho RN 03/27/2016 Procedure visit Urology Amrit Lazcano Preop testing (Primary E, MD Dx); BPH with urinary obstruction; Bladder neck contracture; Atrial fibrillation, unspecified type (HCC); Primary cardiomyopathy (HCC); Essential hypertension; COPD without exacerbation (HCC); Retention of urine 03/27/2016 Orders Only Provider, Not In System 03/24/2016 Telephone Urology Kirti Brooks, Medication Management RN 03/18/2016 Office Visit Urology Jackson Solomon Urinary hesitancy PATO Olvera (Primary Dx); Slowing of urinary stream 03/17/2016 Telephone Urology Suzette Fernandez Urinary Retention Ryan, [employer]ACE OFF[employer]ER 03/13/2016 Office Visit Urology Jackson Solomon Retention of urine PATO Olvera (Primary Dx); BPH with urinary obstruction 03/13/2016 Telephone Urology Candice Willett, RN Telephone Call 03/04/2016 Telephone Gastroenterology Nabil Kang - TC from Pt c/o Mallorie Worley RN abdominal and rectal pain. 02/26/2016 Scanned Document Provider, Not In System 02/26/2016 Telephone Gastroenterology Kayce Giles Medication Management - Dalton, RN PT.'S DAUGHTER CAME IN FOR LINZESS SAMPLES. SENT LINZESS 290 MCG 28 CAPSULES LOT# [id number] EXP. 02/14/2016 Data Import 02/11/2016 Clinical Support Cardiology Raj Tong Atrial Deyanira alcantara MD unspecified type (HCC) Mara Arevalo RDCS 02/11/2016 Office Visit Cardiology Raj Tong Atrial fibrillation, F, MD unspecified type (HCC) (Primary Dx); Brain aneurysm; Atherosclerosis of [place] coronary artery of [place] heart without angina pectoris; Essential hypertension; Hypercholesterolemia; Primary cardiomyopathy (HCC); Encounter for long-term (current) use of other medications; Personal history of tobacco use, presenting hazards to health; Postsurgical percutaneous transluminal coronary angioplasty status 02/04/2016 Office Visit Gastroenterology Juju, Drug-induced constipation Latrell Blackmon MD (Primary Dx) 02/04/2016 Telephone Gastroenterology Kayce Giles Medication Management - Dalton RN LM FOR PT TO CALL OFFICE. 01/31/2016 Abstract Gastroenterology Kayce Giles RN 01/30/2016 Scanned Document Gastroenterology Provider, Not In System 01/28/2016 Telephone Gastroenterology Nabil Kang - Pt called Mallorie Worley RN questioning [...] Taken Blood Pressure 134/78 04/09/2016 11:25 AM CASINO SUPERVISOR Pulse 90 04/01/2016 2:23 PM CASINO SUPERVISOR Temperature 36.4 C (97.6 F) 03/18/2016 10:45 AM CASINO SUPERVISOR Respiratory Rate 20 03/18/2016 10:45 AM CASINO SUPERVISOR Height 1.88 m (6' 2") 02/04/2016 2:13 PM CASINO SUPERVISOR Weight 63.504 kg (140 lb) 04/01/2016 2:23 PM CASINO SUPERVISOR Body Mass Index 17.97 04/01/2016 2:23 PM CASINO SUPERVISOR Oxygen Saturation 87% 04/01/2016 2:23 PM CASINO SUPERVISOR Plan of Care Patient Goal Type Goal Blood Pressure Blood Pressure below 140/90 Date Type Specialty Providers Description 04/25/2016 Appointment Urology Jackson Solomon PAS[facility] [address] [phone] (Fax) 05/19/2016 Appointment Cardiology Raj Tong MD [address] [place] [id number] [phone] (Fax) 10/13/2016 Appointment Cardiology Raj Tong MD [address] [place] [address] [phone] (Fax) Health Maintenance Due Date Last Done Comments Hepatitis C Screening 06/10/1965 Tetanus/Pertussis (1 - Tdap) 06/10/1966 Colonoscopy 06/10/1997 Well Adult Visit 06/10/1997 Zoster Vaccine 60+ 2007 AAA Screening (Medicare Covered) 06/10/2012 Pneumococcal Low/Medium Risk 65+ (1 of 2 - PCV13) 06/10/2012 Influenza Immunization (#1) 2015 Results from Last 3 Months TTE (Transthoracic Echo) Complete (04/18/2016 8:33 AM) [place] [address] Echocardiographic Report Patient Name: JORGE MADERA MPatient ID: [id number] : 1945Study Date: 04/18/2016 8:33:35 AM [facility]: [facility]: [facility] Height(Cm): 188Weight(Kg): 73.5 Ref. Physician: KATHI TONGocation: [place] Quality: Good BSA: 1.96 Procedures: Echocardiographic Report: Transthoracic echocardiogram with complete 2D, M-Mode, color flow and Doppler examination. Indications: Abnormal EKG. Measurements: 2D/M Mode Measurement ValueNormal Range IVSd MM 1.2[ 0.6 - 0.9 ] cm IVSs MM 1.46 [ 1.00 - 5.00 ] cm LVIDd MM4.5[ 4.2 - 5.9 ] cm LVIDs MM3.1[ 2.3 - 3.9 ] cm LVPWd MM1.2[ 0.6 - 1.0 ] cm LVPWs MM1.6[ 1.0 - 5.0 ] cm AoR Diam MM 3.20 [ 2.60 - 3.70 ] cm LA Dimen MM 3.5[ 3.0 - 4.0 ] cm LA/Ao MM1.09 ratio ACS MM2.1[ 1.5 - 2.6 ] cm EDV MM90.5 [ 67.0 - 155.0 ] ml ESV MM38.8 [ 22.0 - 58.0 ] ml SV MM 51.7 cm3 LV FS MM29.8 [ 25.0 - 43.0 ] percent EF MM 57.1 [ 55.0 - 70.0 ] percent IVSd 2D 0.9[ 0.6 - 0.9 ] cm LVIDd 2D4.41 [ 4.20 - 5.90 ] cm LVPWd 2D1.1[ 0.6 - 1.0 ] cm EDV 2D-Cubed85.8 [ 67.0 - 155.0 ] ml ESV 2D-Cubed39.0 [ 22.0 - 58.0 ] ml LV FS 2D-Cubed23.1 [ 25.0 - 43.0 ] percent EF 2D-Cubed 54.5 [ 55.0 - 70.0 ] percent LA Volume 51.2 [ 18.0 - 58.0 ] ml Doppler Measurement ValueNormal Range AV Mean PG3.0[ 2.0 - 4.0 ] mmHg AV Peak Douglas 114.0[ 100.0 - 170.0 ] cm/sec AV Peak PG5.0[ 2.0 - 9.0 ] mmHg STEWART VTI 2.3[ 2.0 - 4.0 ] cm2 AV VTI31.1 cm LVOT Diam 2.1[ 1.7 - 2.1 ] cm LVOT Area 759.3 LVOT Mean Douglas 46.8 [ 60.0 - 80.0 ] cm/sec LVOT Mean PG1.0[ 1.0 - 3.0 ] mmHg LVOT Peak [place] 85.6 [ 70.0 - 110.0 ] cm/sec LVOT Peak PG3.0[ 2.0 - 6.0 ] mmHg LVOT VTI21.0 [ 20.0 - 30.0 ] cm MV E Peak [place] 59.0 [ 60.0 - 130.0 ] cm/sec MV A Peak [place] 64.1 [ 100.0 - 120.0 ] cm/sec MV E/A0.9[ 0.8 - 1.5 ] ratio MV Decel Time 327.0[ 104.0 - 258.0 ] msec MV PHT0.3 PV Peak [place] 72.3 [ 40.0 - 80.0 ] cm/sec PV Peak PG2.0mmHg TR Peak Douglas 292.0[ 100.0 - 280.0 ] cm/sec TR Peak PG35.0 mmHg Findings: Left Ventricle: Normal left ventricular systolic function. Ejection fraction is estimated at 50-55 %. Wall thickness is increased consistent with mild concentric left ventricular hypertrophy. Diastolic Function: Grade I left ventricular diastolic dysfunction. Right Ventricle: Normal right ventricular size. Normal right ventricular function. Left Atrium: The left atrium is normal in size. Right Atrium: The right atrium is normal in size. RA Pressure is 3. Mitral Valve: Mild mitral annular calcification. Mild mitral valve regurgitation. Aortic Valve: Aortic cusps appear severely calcified. No hemodynamically significant aortic stenosis by Doppler. Trace aortic valve regurgitation. Tricuspid Valve: There is trivial tricuspid regurgitation. Pulmonic Valve: There is trace pulmonic regurgitation. Pericardium: Normal pericardium with no significant pericardial effusion or masses seen. There is an anterior echo free space consistent with epicardial fat pad. Aorta: Normal aortic root. Conclusions: Normal left ventricular systolic function. Ejection fraction is estimated at 50-55 %. Wall thickness is increased consistent with mild concentric left ventricular hypertrophy. Grade I left ventricular diastolic dysfunction. The left atrium is normal in size. Mild mitral annular calcification. Mild mitral valve regurgitation. Aortic cusps appear severely calcified. No hemodynamically significant aortic stenosis by Doppler. Trace aortic valve regurgitation. There is trivial tricuspid regurgitation. There is trace pulmonic regurgitation. Normal pericardium with no significant pericardial effusion or masses seen. There is an anterior echo free space consistent with epicardial fat pad. Electronically Signed By: Dr. Raj Tong MD, [facility] [facility] 2016-04-18 13:50:53-0600 CC: CC: Procedure Note Naeem, External Ris In - ThuApr 18, 2016 1:51 [place] [address] Echocardiographic Report Patient Name: JORGE MADERA MPatient ID: [id number] : 1945Study Date: 04/18/2016 8:33:35 AM [facility]: [facility]: [facility] Height(Cm): 188Weight(Kg): 73.5 Ref. Physician: KATHI TONGocation: [place] Quality: Good BSA: 1.96 Procedures: Echocardiographic Report: Transthoracic echocardiogram with complete 2D, M-Mode, color flow and Doppler examination. Indications: Abnormal EKG. Measurements: 2D/M Mode Measurement Value Normal Range IVSd MM 1.2 [ 0.6 - 0.9 ] cm IVSs MM 1.46 [ 1.00 - 5.00 ] cm LVIDd MM 4.5 [ 4.2 - 5.9 ] cm LVIDs MM 3.1 [ 2.3 - 3.9 ] cm LVPWd MM 1.2 [ 0.6 - 1.0 ] cm LVPWs MM 1.6 [ 1.0 - 5.0 ] cm AoR Diam MM 3.20 [ 2.60 - 3.70 ] cm LA Dimen MM 3.5 [ 3.0 - 4.0 ] cm LA/Ao MM 1.09 ratio ACS MM 2.1 [ 1.5 - 2.6 ] cm EDV MM 90.5 [ 67.0 - 155.0 ] ml ESV MM 38.8 [ 22.0 - 58.0 ] ml SV MM 51.7 cm3 LV FS MM 29.8 [ 25.0 - 43.0 ] percent EF MM 57.1 [ 55.0 - 70.0 ] percent IVSd 2D 0.9 [ 0.6 - 0.9 ] cm LVIDd 2D 4.41 [ 4.20 - 5.90 ] cm LVPWd 2D 1.1 [ 0.6 - 1.0 ] cm EDV 2D-Cubed 85.8 [ 67.0 - 155.0 ] ml ESV 2D-Cubed 39.0 [ 22.0 - 58.0 ] ml LV FS 2D-Cubed 23.1 [ 25.0 - 43.0 ] percent EF 2D-Cubed 54.5 [ 55.0 - 70.0 ] percent LA Volume 51.2 [ 18.0 - 58.0 ] ml Doppler Measurement Value Normal Range AV Mean PG 3.0 [ 2.0 - 4.0 ] mmHg AV Peak Douglas 114.0 [ 100.0 - 170.0 ] cm/sec AV Peak PG 5.0 [ 2.0 - 9.0 ] mmHg STEWART VTI 2.3 [ 2.0 - 4.0 ] cm2 AV VTI 31.1 cm LVOT Diam 2.1 [ 1.7 - 2.1 ] cm LVOT Area 759.3 LVOT Mean Douglas 46.8 [ 60.0 - 80.0 ] cm/sec LVOT Mean PG 1.0 [ 1.0 - 3.0 ] mmHg LVOT Peak Douglas 85.6 [ 70.0 - 110.0 ] cm/sec LVOT Peak PG 3.0 [ 2.0 - 6.0 ] mmHg LVOT VTI 21.0 [ 20.0 - 30.0 ] cm MV E Peak Douglas 59.0 [ 60.0 - 130.0 ] cm/sec MV A Peak Douglas 64.1 [ 100.0 - 120.0 ] cm/sec MV E/A 0.9 [ 0.8 - 1.5 ] ratio MV Decel Time 327.0 [ 104.0 - 258.0 ] msec MV PHT 0.3 PV Peak Douglas 72.3 [ 40.0 - 80.0 ] cm/sec PV Peak PG 2.0 mmHg TR Peak Douglas 292.0 [ 100.0 - 280.0 ] cm/sec TR Peak PG 35.0 mmHg Findings: Left Ventricle: Normal left ventricular systolic function. Ejection fraction is estimated at 50-55 %. Wall thickness is increased consistent with mild concentric left ventricular hypertrophy. Diastolic Function: Grade I left ventricular diastolic dysfunction. Right Ventricle: Normal right ventricular size. Normal right ventricular function. Left Atrium: The left atrium is normal in size. Right Atrium: The right atrium is normal in size. RA Pressure is 3. Mitral Valve: Mild mitral annular calcification. Mild mitral valve regurgitation. Aortic Valve: Aortic cusps appear severely calcified. No hemodynamically significant aortic stenosis by Doppler. Trace aortic valve regurgitation. Tricuspid Valve: There is trivial tricuspid regurgitation. Pulmonic Valve: There is trace pulmonic regurgitation. Pericardium: Normal pericardium with no significant pericardial effusion or masses seen. There is an anterior echo free space consistent with epicardial fat pad. Aorta: Normal aortic root. Conclusions: Normal left ventricular systolic function. Ejection fraction is estimated at 50-55 %. Wall thickness is increased consistent with mild concentric left ventricular hypertrophy. Grade I left ventricular diastolic dysfunction. The left atrium is normal in size. Mild mitral annular calcification. Mild mitral valve regurgitation. Aortic cusps appear severely calcified. No hemodynamically significant aortic stenosis by Doppler. Trace aortic valve regurgitation. There is trivial tricuspid regurgitation. There is trace pulmonic regurgitation. Normal pericardium with no significant pericardial effusion or masses seen. There is an anterior echo free space consistent with epicardial fat pad. Electronically Signed By: Dr. Raj Tong MD, FAC, CCDS 2016-04-18 13:50:53-0600 CC: CC: NM HEART MUSCLE SPECT MULTIPLE (04/09/2016 2:48 PM) [place] [address] [facility] Imaging Report Patient Name: JORGE MADERA MPatient ID: [id number] : 1945Study Date: 04/09/2016 2:48:15 PM Gender: [facility]: Height(Inch): Weight(LB): 140 Ref. Physician: KATHI [...] Signed By: Dr. Raj Tong MD, [facility] 2016-04-10 08:41:27-0600 Electronically Signed By: Dr. Raj Tong MD, [facility] 2016-04-10 08:41:37-0600 CC: CC: Procedure Note Naeem, External Ris In - Jyoti Apr 10, 2016 8:42 [place] [address] [facility] Imaging Report Patient Name: JORGE MADERA MPatient ID: [id number] : 1945Study Date: 04/09/2016 2:48:15 PM Gender: [employer]: Height(Inch): Weight(LB): 140 Ref. Physician: KATHI TONGocation: [...] Signed By: Dr. Raj Tong MD, [facility] 2016-04-10 08:41:27-0600 Electronically Signed By: Dr. Raj Tong MD, [facility] 2016-04-10 08:41:37-0600 CC: CC: Urine culture (04/09/2016 11:44 AM)Only the most recent of3 resultswithin the time period is included. Component Value Range Urine Culture, Routine Microbiology resultsComment: CARLOS TYPE Cath RESULT NO GROWTH Specimen Urine,Straight Cath Narrative Testing performed at [facility], [address] [place] [address].[employer] Micha Mar MD Specimen: UACUL Urinalysis with microscopic (04/01/2016 2:07 PM)Only the most recent of2 resultswithin the time period is included. Component Value Range *CARLOS TYPE Cath Color, Fluid [place](A) Yellow Clarity, Fluid Turbid(A) Clear Specific [place] 1.023 1.001-1.035 pH 7.5 5.0-8.0 Leukocyte Esterase, [...] Urine Hernandez Cath Narrative Testing performed at [facility], [address] [place] [address].[employer]ail Mortgage [employer]er Micha Mar MD Specimen: UACUL Measure post [...] MG/DL Provisional Diagnosis of Diabetes Mellitus > nz=667 MG/DL (Diagnosis Must Be Confirmed) BUN, Blood [...] 25.4 21.0-32.0 mmol/L Narrative Testing performed at [facility], [address] [place] [address].[employer]ail Mortgage [employer]er Micha Mar MD EKG 12 lead (02/11/2016 2:02 PM) Narrative Vent Rate: 51 bpm RR Interval: 1157 msec [place] Interval: 208 msec QRS Duration: 100 msec QT Interval: 484 msec QTC Interval: 462 msec P-R-T [place]: 70 - -16 - 18 degrees SINUS BRADYCARDIA INFERIOR MYOCARDIAL INFARCTION , PROBABLY OLD WITH POSTERIOR EXTENSION[40+ ms Q WAVE AND/OR ST/T ABNORMALITY IN II/aVFPROMINE ABNORMAL ECG2] Electronically Signed By: Dr. Raj Tong MD, FACC, CCDS Procedure Note Naeem, External Ris In - ThuFeb 11, 2016 2:24 PM CASINO SUPERVISOR Vent Rate: 51 bpm RR Interval: 1157 msec [place] Interval: 208 msec QRS Duration: 100 msec QT Interval: 484 msec QTC Interval: 462 msec P-R-T [place]: 70 - -16 - 18 degrees SINUS BRADYCARDIA INFERIOR MYOCARDIAL INFARCTION , PROBABLY OLD WITH POSTERIOR EXTENSION [40+ ms Q WAVE AND/OR ST/T ABNORMALITY IN II/aVFPROMINE ABNORMAL ECG2] Electronically Signed By: Dr. Raj Tong MD, FACC, CCDS
== END 2016-04-24 06:13 | disposition left against medical advice (07) ==
LOC: ER 05:11
DX: K59.09 Other constipation (principal); Z72.0 Tobacco use

== ENCOUNTER 2016-05-01 22:16 | Emergency (ER) | payer MEDICARE, OTHER ==
[2016-05-01 22:26] VITALS: BP 142/68
--- NOTE | 2016-05-01 22:44 | ERNOTE ---
Medical Problem HPI - Narrative Date of Service: 05/01/16 - LEFT WITHOUT BEING SEEN. - General Chief Complaint: General Assessment Time Seen by Provider: 05/01/16 22:41 - Immun/Allergies/Home Medications Immunizations: IMMUNIZATION HX Immunizations Up to Date Yes History of Influenza Vaccine Yes Hx Pneumococcal Vaccination Yes Allergies/Adverse Reactions: Allergies Sulfa (Sulfonamide Antibiotics) [Sulfa(Sulfonamide Antibiotics)] Allergy (Severe , Verified 04/14/16 16:58) Other confusion Penicillins Allergy (Intermediate, Verified 04/14/16 16:58) Hives Home Medications: HOME MEDICATIONS Acetaminophen [Tylenol] 650 mg PO Q4H PRN 01/13/16 [Last Taken Unknown] Alprazolam [Xanax Xr] 0.5 mg PO QID 01/13/16 [Last Taken Unknown] Apixaban [Eliquis] 5 mg PO BID 01/13/16 [Last Taken Unknown] Bisacodyl [Dulcolax Suppository] 10 mg RC DAILY PRN 01/13/16 [Last Taken Unknown ] Carvedilol [Coreg] 3.125 mg PO DAILY 01/13/16 [Last Taken Unknown] Ferrous Sulfate [Iron] 325 mg PO DAILY 01/13/16 [Last Taken Unknown] Levalbuterol HCl [Xopenex] 0.63 mg IH Q3H PRN 01/13/16 [Last Taken Unknown] Levothyroxine Sodium [Synthroid] 88 mcg PO DAILY 01/13/16 [Last Taken Unknown] Magnesium Hydroxide [Milk Of Magnesia] 30 ml PO DAILY PRN 01/13/16 [Last Taken Unknown] Oxycodone HCl/Acetaminophen [Percocet 10-325 mg Tablet] 1 each PO QID 01/13/16 [ Last Taken Unknown] Polyethylene Glycol 3350 [Miralax] 17 gm PO DAILY 01/13/16 [Last Taken Unknown] - Patient's Past Medical History Patient History - Medical: Chronic Pain, Other Patient History - Cardiac/Respiratory: Coronary Heart Disease, Hypertension, Myocardial Infarction, Pneumonia Patient History - Cancer: No Hx of Cancer Patient History - Surgical Procedures: Cholecystectomy, Other Patient History - Other: None - Social History Living Situations: home Abuse History: No History of abuse Psych History: No pertinent hx Smoking Status: Current every day smoker Alcohol Use: none Drug Use: none - Immunizations Immunizations Up to Date: Yes Hx Pneumococcal Vaccination: Yes History of Influenza Vaccine: Yes ED Progress - Vital Signs Vital Signs: Vital Signs 05/01/16 22:22 Temperature 36.8 C Pulse Rate 87 Respiratory 18 Rate Blood Pressure 142/68 O2 Sat by Pulse 98 Oximetry - Progress/Reassessment Chief Complaint: General Assessment Departure - Departure Clinical Impression: Patient left without being seen Disposition: Left without seen by physician
--- OUTSIDE RECORDS SUMMARY | 2016-05-01 22:45 | XMS REPORT | Continuity of Care Document ---
:1945 Author Organization [facility] [place] [address] Care Team Providers Name Role Phone Jorge Padron Dalton Primary Care Provider [phone] Source Comments This disclosure is being made pursuant to the myOrder program and maynot contain all information available regarding this patient.[facility] Active Allergies and Adverse Reactions Allergen Noted [...] tablet by mouth 3 (three) times daily. oxyCODONE-acetamino Take 10-325 Active phen (PERCOCET) mg by mouth. 10-325 MG per 1 tab(s) By tablet Mouth 4 Times A Day aspirin 81 MG Take 81 mg by Active tablet mouth daily. levothyroxine Take 88 mcg Active (SYNTHROID, by mouth LEVOTHROID) 88 MCG every tablet morning. budesonide-formoter Inhale 2 Active ol (SYMBICORT) puffs into 80-4.5 MCG/ACT the lungs 2 inhaler (two) times daily. vitamin D, Take 2,000 Active cholecalciferol, Units by 1000 UNITS tablet mouth daily. apixaban (ELIQUIS) Take 1 tablet 60 tablet 0 11/29/2014 Active 5 MG TABS tablet by mouth 2 (two) times daily. amiodarone TAKE ONE 30 tablet 11 06/21/2015 Active (PACERONE) 200 MG TABLET BY tablet MOUTH EVERY DAY famotidine (PEPCID) Take 1 tablet 06/12/2015 Active 20 MG tablet by mouth daily. bisacodyl Take 5 mg by Active (DULCOLAX) 5 MG EC mouth daily tablet as needed for Constipation. Takes 8 tabs [...] capsule by mouth 3 (three) times daily. losartan-hydrochlor Take 1 tablet 30 tablet 11 04/21/2016 Active othiazide (HYZAAR) by mouth 50-12.5 MG per daily. tablet nitrofurantoin, Take 1 10 capsule 0 04/30/2016 05/05/2016 Active macrocrystal-monohy capsule by drate, (MACROBID) mouth 2 (two) 100 MG capsule times daily. losartan-hydrochlor TAKE ONE 30 tablet 11 08/23/2015 04/21/2016 Discontinued othiazide (HYZAAR) TABLET BY 50-12.5 MG per MOUTH EVERY tablet DAY oxybutynin Take 1 tablet 45 tablet 0 03/31/2016 04/15/2016 (DITROPAN) 5 MG by mouth 3 tablet (three) times daily. cephALEXin (KEFLEX) Take 1 21 capsule 0 03/31/2016 04/07/2016 500 MG capsule capsule by mouth 3 (three) times daily. Hospital, Clinic, or Other Ordered Dose Route Frequency Start Date End Date Status Facility Administered Medication regadenoson (LEXISCAN) 0.4mg IV Once 04/09/2016 04/09/2016 Ended injection Active Problems Problem Noted Date Chest pain 04/01/2016 Dyspnea 04/01/2016 Preop cardiovascular exam 04/01/2016 Hypoxia 04/01/2016 [facility] current use of anticoagulant 04/01/2016 Bladder neck contracture 03/27/2016 COPD without exacerbation (HCC) 03/25/2016 BPH with urinary obstruction 09/04/2015 Retention of urine 09/04/2015 Fall 08/17/2014 Hypotension 08/17/2014 Brain aneurysm 03/14/2014 Personal history of tobacco use, presenting hazards to health 03/24/2013 Overview: Overview: RAJ TONG MD Atrial fibrillation (FORM[facility]) 11/24/2012 Overview: Overview: RAJ TONG MD Primary cardiomyopathy (HCC) 04/14/2012 Overview: Overview: recovered to normal RAJ TONG MD Coronary atherosclerosis of [place] coronary artery 04/14/2012 Overview: Overview: RAJ TONG [...] bronchitis without exacerbation (HCC) 03/25/20162016 Atrial fibrillation ([facility]) 04/14/2012 09/05/2015 Overview: Overview: now in NSR RAJ TONG MD Most Recent Encounters Date Type Specialty Providers Description 05/01/2016 Clinical Support Urology Amrit Lazcano Retention of urine MD Jillian (Primary Dx) 04/30/2016 Refill Urology Makeda Moore RN 04/25/2016 Clinical Support Urology Jackson Solomon Preop testing (Primary M, PA-C Dx); Benign non-nodular prostatic hyperplasia with lower urinary tract symptoms 04/25/2016 Clinical Support Radiology Amrit Lazcano Preop testing; Carrie Walsh MD non-nodular prostatic Huertas, Shashi hyperplasia with lower S, Tech urinary tract symptoms; Chronic obstructive pulmonary disease, unspecified COPD type ([facility]) 04/22/2016 Telephone Urology Suzette Fernandez MINERAL SURVEYING TECHNICIAN 04/21/2016 Refill Cardiology Jacki, Medication Refalda Spears CMA 04/18/2016 Clinical Support Cardiology Raj Tong Decreased cardiac MD Deyanira ejection fraction; Dong, Abnormal cardiovascular Jag P, RT stress test; SOB (shortness of breath); Preop cardiovascular exam 04/15/2016 Clinical Support Urology Amrit Lazcano Bladder neck contracture MD Jillian (Primary Dx); Incomplete bladder emptying 04/14/2016 Telephone Urology Kirti Brooks Other RN 04/11/2016 Telephone Urology Suzette Fernandez, MINERAL SURVEYING TECHNICIAN 04/10/2016 Clinical Support Urology Jackson Solomon Bladder neck contracture PATO Olvera (Primary Dx) 04/10/2016 Orders Only Cardiology Quentin Mayra Decreased cardiac F, RN ejection fraction (Primary Dx); Abnormal cardiovascular stress test; SOB (shortness of breath); Preop cardiovascular exam 04/10/2016 Telephone Urology Suzette Fernandez - surgical J, MINERAL SURVEYING TECHNICIAN arrangements 04/09/2016 Clinical Support Radiology Raj Tong Pre-operative MD Deyanira cardiovascular Makeda Bull examination (Primary Dx); M, RT Chest pain, unspecified type 04/09/2016 Office Visit Urology Amrit Lazcano Preop testing (Primary MD Jillian Dx); Bladder neck contracture; Benign non-nodular prostatic hyperplasia with lower urinary tract symptoms; BPH with urinary obstruction 04/09/2016 Telephone Urology Nickie Camacho, RN 04/08/2016 Orders Only Provider, Not In System 04/08/2016 Transcribe Orders Radiology Makeda Bull Pre-operative M, RT cardiovascular examination (Primary Dx); Chest pain, unspecified type 04/07/2016 Orders Only Provider, Not In System 04/02/2016 Telephone Urology Candice Willett, CHATO Other 04/02/2016 Telephone Urology Candice Willett RN Other 04/01/2016 Office Visit Cardiology Raj Tong Chest pain, unspecified MD Deyanira type (Primary Dx); Pre-operative cardiovascular examination; Dyspnea on exertion; Preop cardiovascular exam; Hypoxia; Personal history of tobacco use, presenting hazards to health; Encounter for long-term (current) use of other medications; Primary cardiomyopathy (HCC); Hypercholesterolemia; Essential hypertension; Atherosclerosis of [place] coronary artery of [place] heart without angina pectoris; Brain aneurysm 04/01/2016 Clinical Support UrologAmrit Muro Bladder neck familia Walsh MD (Primary Dx); Retention of urine; BPH with urinary obstruction 04/01/2016 Telephone UrologSuzette Juan, MINERAL SURVEYING TECHNICIAN 03/31/2016 Office Visit Urology Galo Taylor bladder [...] Provider, Not In System 03/24/2016 Telephone Urology Kriti Brooks Medication Management RN 03/18/2016 Office Visit Urology Jackson Solomon Urinary hesitancy PATO Olvera (Primary Dx); Slowing of urinary stream 03/17/2016 Telephone Urology Suzette Fernandez Urinary Retention Ryan, MINERAL SURVEYING TECHNICIAN 03/13/2016 Office Visit Urology Jackson Solomon Retention [...] SENT LINZESS 290 MCG 28 CAPSULES LOT# [id number] EXP. 02/14/2016 Data Import 02/11/2016 Clinical Support Cardiology Raj Tong F, MD unspecified type (HCC) Mara Arevalo RD 02/11/2016 Office Visit Cardiology Raj Tong Atrial fibrillationDeyanira MD unspecified type (HCC) (Primary Dx); Brain aneurysm; Atherosclerosis of [place] coronary artery of [place] heart without angina pectoris; Essential hypertension; Hypercholesterolemia; Primary cardiomyopathy (HCC); Encounter for long-term (current) use of other medications; Personal history of tobacco use, presenting hazards to health; Postsurgical percutaneous transluminal coronary angioplasty status 02/04/2016 Office Visit Gastroenterology Juju, Drug-induced constipation Latrell Blackmon MD (Primary Dx) 02/04/2016 Telephone Gastroenterology Kayce Giles Medication Management - Dalton, RN LM FOR PT TO CALL OFFICE. Social History Tobacco Use Types Packs/Day Years Used Date Former Smoker Smokeless Tobacco: Never Used Tobacco Cessation:Ready to Quit: Yes; Counseling Given: Yes Comments: Alcohol Use Drinks/Week oz/Week Comments No Alcoholic Drinks/day: ALCOHOL USE: NON-DRINKER Last Filed Vital Signs Vital Sign Reading Time Taken Blood Pressure 134/78 04/09/2016 11:25 AM OFFICE ANALYST Pulse 90 04/01/2016 2:23 PM OFFICE ANALYST Temperature 36.4 C (97.6 F) 03/18/2016 10:45 AM OFFICE ANALYST Respiratory Rate 20 03/18/2016 10:45 AM OFFICE ANALYST Height 1.88 m (6' 2") 02/04/2016 2:13 PM OFFICE ANALYST Weight 63.504 kg (140 lb) 04/01/2016 2:23 PM OFFICE ANALYST Body Mass Index 17.97 04/01/2016 2:23 PM OFFICE ANALYST Oxygen Saturation 87% 04/01/2016 2:23 PM OFFICE ANALYST Plan of Care Patient Goal Type Goal Blood Pressure Blood Pressure below 140/90 Date Type Specialty Providers Description 05/19/2016 Appointment Cardiology Raj Tong MD [address] [place] [id number] [phone] (Fax) 10/13/2016 Appointment Cardiology Raj Tong MD [address] [place] [phone] (Fax) Health Maintenance Due Date Last Done Comments Hepatitis C Screening 06/10/1965 Tetanus/Pertussis (1 - Tdap) 06/10/1966 Colonoscopy 06/10/1997 Well Adult Visit 06/10/1997 Zoster Vaccine 60+ 2007 AAA Screening (Medicare Covered) 06/10/2012 Pneumococcal Low/Medium Risk 65+ (1 of 2 - PCV13) 06/10/2012 Influenza Immunization (#1) 2015 Results from Last 3 Months Urinalysis with microscopic (04/25/2016 10:35 AM)Only the most recent of3 resultswithin the time period is included. Component Value Range *CARLOS TYPE Hernandez Cath Color, Fluid Kathe(A) Yellow Clarity, Fluid Turbid(A) Clear Specific [place] 1.044(A) 1.001-1.035 pH 5.5 5.0-8.0 Leukocyte Esterase, UA 2+(A) Negative Nitrite Positive(A) Negative Protein 2+(A) Negative Glucose, Urinalysis Negative Negative Ketones, UA Trace(A) Negative Urobilinogen Negative Negative Bilirubin Urine 2+(A)Comment:Presumptive Positive - Negative Confirmation testing may be sent to Reference Lab upon request Blood 3+(A) Negative Manual Microscopy Performed Manual Microscopy Performed. WBC >200(A)Comment:Culture ordered by lab if not 0-2 already ordered by physician. RBC >50(A) 0-2 Epithelial Cells, Fluid None <2+ Bacteria 4+(A) None Hyaline Casts 0-2 0-2 Specimen Urine Hernandez Cath Narrative Testing performed at [facility], [address] [place] [address].Cable Engineer Outside Plant Micha Mar MD Specimen: UACUL Urine culture (04/25/2016 10:35 AM)Only the most recent of4 resultswithin the time period is included. Component Value Range Urine Culture, Routine Microbiology resultsComment: CARLOS TYPE Hernandez Cath COLONY COUNT >100,000 cfu/ml MIXED RESULT Enterococcus species (Isolate 1) RESULT COAGULASE NEGATIVE STAPHYLOCOCCUS,IDENTIFICATION ONLY(Isolate 2) SENSITIVITY ANALYSISIsolate 1 AMPICILLIN <=2S CIPROFLOXACIN<=1S LEVOFLOXACIN 1S NITROFURANTOIN<=32S PENICILLIN 2 S TETRACYCLINE>8R Specimen Urine Hernandez Cath Narrative Testing performed at [facility], [address] [place] [address].Cable Engineer [employer] Micha Mar MD XR CHEST 2 VIEWS PA AND LAT (04/25/2016 9:49 AM)Only the most recent of2 resultswithin the time period is included. Narrative XR CHEST 2 VIEWS PA AND LAT Clinical History: preop for prostate exam, hx copd and smoker dsc COMPARISON: 02/25/2016, 02/01/2016 portable chest x-rays FINDINGS: Lungs are hyperinflated with prominent chronic emphysematous changes.Slight coarsening of the interstitial markings with regions of scar.Question nodular density in the right midlung between posterior right ribs 5 and 6.There is no pneumothorax or pleural effusion.Chronic right pleural thickening.Cardiac size is within normal limits.No shift of the mediastinal structures.There are postoperative changes of fusion in the cervical spine. IMPRESSION: Question nodular density in the right midlung. Recommend further characterization with noncontrast CT chest. Severe chronic emphysematous changes and scar. THIS IS AN ELECTRONICALLY SIGNED REPORT BY READING PHYSICIAN: Delores Campbell D.O.2016-04-25 15:30:48 Procedure Note Naeem, External Ris In - ThuApr 25, 2016 3:32 PM OFFICE ANALYST XR CHEST 2 VIEWS PA AND LAT Clinical History: preop for prostate exam, hx copd and smoker dsc COMPARISON: 02/25/2016, 02/01/2016 portable chest x-rays FINDINGS: Lungs are hyperinflated with prominent chronic emphysematous changes. Slight coarsening of the interstitial markings with regions of scar. Question nodular density in the right midlung between posterior right ribs 5 and 6. There is no pneumothorax or pleural effusion. Chronic right pleural thickening. Cardiac size is within normal limits. No shift of the mediastinal structures. There are postoperative changes of fusion in the cervical spine. IMPRESSION: Question nodular density in the right midlung. Recommend further characterization with noncontrast CT chest. Severe chronic emphysematous changes and scar. THIS IS AN ELECTRONICALLY SIGNED REPORT BY READING PHYSICIAN: Delores Campbell D.O. 2016-04-25 15:30:48 CBC auto differential (04/25/2016 9:44 AM)Only the most recent of2 resultswithin the time period is included. Component Value Range WBC 4.8 3.1-11.0 x10^3/uL RBC 4.08(L) 4.29-5.55 x10^6/uL Hemoglobin 12.2(L) 13.3-16.5 g/dL Hematocrit 38.7(L) 39.2-48.0 % MCV 94.9 81.0-98.0 fL MCH 29.9 27.2-33.3 pg MCHC 31.5(L) 31.7-35.6 g/dL RDW 17.1(H) 11.4-13.6 % SD-RDW 56.8(H) 36.4-46.3 fL Platelets 216 147-370 x10^3/uL MPV 10.2 9.1-12.1 fL NE% 84.1(H) 42.0-76.0 % %LYMPH 8.5(L) 15.0-44.0 % %MONO 6.0 4.0-13.0 % % Eosinophils 0.8 0.0-6.0 % % Basophils 0.2 0.0-1.0 % Imm Gran Relative 0.4 0.0-1.0 % NE# 4.1 1.2-7.3 x10^3/uL Lymphs # 0.4(L) 0.6-3.5 x10^3/uL Citrus# 0.3 0.2-0.9 x10^3/uL Eosinophil # 0.0 0.0-0.4 x10^3/uL Baso# 0.0 0.0-0.1 x10^3/uL Imm Gran Absolute 0.02 0.00-0.10 x10^3/uL Specimen BLOOD Narrative Testing performed at [facility], [address] [place] [address].Cable Engineer Outside [employer] Micha Mar MD Specimen: BLD Comprehensive metabolic panel (04/25/2016 9:44 AM) Component Value Range Glucose 109(H)Comment: 60-100 mg/dL Fasting Plasma Glucose (FPG)<100 MG/DL Impaired Fasting Glucose (IFG) 100-125 MG/DL Provisional Diagnosis of Diabetes Mellitus > yb=443 MG/DL (Diagnosis Must Be Confirmed) BUN, Blood 18 8-26 mg/dL Creatinine 1.1 0.7-1.4 mg/dL Glomerular Filtration Rate 70(L) >80 mL/min/1.73mm2 Estimate Glomerlular Filtration Rate 81Comment:The estimated GFR has >80 mL/min/ 1.73mm2 Estimate- not been validated for women or patients with serious comorbid conditions, or with extremes of body size, muscle mass, or nutritional status. Calcium 8.9 8.4-10.2 mg/dL Sodium 142 136-145 mmol/L Potassium 3.4 3.4-4.9 mmol/L Chloride 102 99-111 mmol/L CO2 29.3 21.0-32.0 mmol/L Albumin 2.7(L) 3.5-5.0 g/dL Total Protein 7.2 6.1-8.0 g/dL Bilirubin Total 0.5 0.2-1.2 mg/dL Alkaline Phosphatase 99 40-150 U/L AST 19 5-34 U/L ALT 16 0-55 u/L Narrative Testing performed at [facility], [address] [place] [address].C[employer] Micha Mar MD TTE (Transthoracic Echo) Complete (04/18/2016 8:33 AM) [place] [id number] Echocardiographic Report Patient Name: JORGE MADERA MPatient ID: [id number] : 1945Study Date: 04/18/2016 8:33:35 AM Gender: MTech: [facility] Height(Cm): 188Weight(Kg): 73.5 Ref. Physician: KATHI TONGocation: QUIQCARD Quality: Good BSA: 1.96 Procedures: Echocardiographic Report: [...] Electronically Signed By: Dr. Raj Tong MD, [facility], [facility] 2016-04-18 13:50:53-0600 CC: CC: Procedure Note Naeem, External Ris In - ThuApr 18, 2016 1:51 [place] [address] Echocardiographic Report Patient Name: JORGE MADERA MPatient ID: [id number] : 1945Study Date: 04/18/2016 8:33:35 AM Gender: [facility]: [facility] Height(Cm): 188Weight(Kg): 73.5 Ref. Physician: KATHI TONGocation: [...] Electronically Signed By: Dr. Raj Tong MD, [facility], [facility] 2016-04-18 13:50:53-0600 CC: CC: NM HEART MUSCLE SPECT MULTIPLE (04/09/2016 2:48 PM) [place] [address] [facility] Report Patient Name: JORGE MADERA MPatient ID: [id number] : 1945Study Date: 04/09/2016 2:48:15 PM Gender: MTech: Height(Inch): Weight(LB): 140 Ref. Physician: KATHI TONGocation: QUIQMARIELY Quality: Good BSA: Procedures: Pharmacologic SPECT/CT Report.: [...] Electronically Signed By: Dr. Raj Tong MD, [facility], [facility] 2016-04-10 08:41:27-0600 Electronically Signed By: Dr. Raj Tong MD, [facility], [facility] 2016-04-10 08:41:37-0600 CC: CC: Procedure Note Naeem, External Ris In - Jyoti Apr 10, 2016 8:42 [place] [address] [facility] Report Patient Name: JORGE MADERA MPatient ID: [id number] : 1945Study Date: 04/09/2016 2:48:15 PM Gender: [facility]: Height(Inch): Weight(LB): 140 Ref. Physician: KATHI [...] Electronically Signed By: Dr. Raj Tong MD, [facility], [facility] 2016-04-10 08:41:27-0600 Electronically Signed By: Dr. Raj Tong MD, [facility], [facility] 2016-04-10 08:41:37-0600 CC: CC: Measure post void residual (03/27/2016)Only the most recent of2 resultswithin the time period is included.Basic metabolic panel (03/13/2016 1:42 PM) Component Value Range Glucose 103(H)Comment: 60-100 mg/dL Fasting Plasma Glucose (FPG)<100 MG/DL Impaired Fasting Glucose (IFG) 100-125 MG/DL Provisional Diagnosis of Diabetes Mellitus > ea=179 MG/DL (Diagnosis Must Be Confirmed) BUN, Blood [...] 25.4 21.0-32.0 mmol/L Narrative Testing performed at [facility], [address] [place] [address].Cable Engineer Outside [employer] Micha Mar MD EKG 12 lead (02/11/2016 2:02 PM) Narrative Vent Rate: 51 bpm RR Interval: 1157 msec MI Interval: 208 msec QRS Duration: 100 msec QT Interval: 484 msec QTC Interval: 462 msec P-R-T [place]: 70 - -16 - 18 degrees SINUS BRADYCARDIA INFERIOR MYOCARDIAL INFARCTION , PROBABLY OLD WITH POSTERIOR EXTENSION[40+ ms Q WAVE AND/OR ST/T ABNORMALITY IN II/aVFPROMINE ABNORMAL ECG2] Electronically Signed By: Dr. Raj Tong MD, FACC, CCDS Procedure Note Naeem, External Ris In - ThuFeb 11, 2016 2:24 PM OFFICE ANALYST Vent Rate: 51 bpm RR Interval: 1157 msec MI Interval: 208 msec QRS Duration: 100 msec QT Interval: 484 msec QTC Interval: 462 msec P-R-T [place]: 70 - -16 - 18 degrees SINUS BRADYCARDIA INFERIOR MYOCARDIAL INFARCTION , PROBABLY OLD WITH POSTERIOR EXTENSION [40+ ms Q WAVE AND/OR ST/T ABNORMALITY IN II/aVFPROMINE ABNORMAL ECG2] Electronically Signed By: Dr. Raj Tong MD, FACC, CCDS
--- OUTSIDE RECORDS SUMMARY | 2016-05-01 22:46 | XMS REPORT | Continuity of Care Document ---
:1945 Author Organization [facility] ([facility]) Address [address] [place] [address] Phone [phone] Care Team Providers Name Role Phone Chase Padron Primary Care Provider [phone] Source Comments This disclosure is being made pursuant to the Care Everywhere program, applicable federal and state laws, and may not contain all informaitonavailable regarding this patient.[facility] ([facility]) Active Allergies and Adverse Reactions Allergen [...] Reported Reason For Visit 02/28/2016 Office Visit Neurosurgery Roby Anthony MD Dx: Cerebral aneurysm , nonruptured (Primary Dx) Immunizations Name Dates Previously Given Next Due [...]
== END 2016-05-01 22:40 | disposition left against medical advice (07) ==
LOC: ER 22:16
DX: Z53.21 Procedure and treatment not carried out due to patient leaving prior to being seen by health care provider (principal)

== ENCOUNTER 2016-11-07 15:48 | Emergency (ER) | payer MEDICARE, OTHER ==
[2016-11-07] MEDS ORDERED: MORPHINE SULFATE 2 MG/ML DISP.SYRIN IV ONE ×2 (16:10→18:26)
[2016-11-07] MEDS ORDERED: ONDANSETRON HCL/PF 2 MG/ML VIAL IV ONE ×2 (16:10→17:22)
--- NOTE | 2016-11-07 16:11 | ERNOTE ---
Abdominal HPI - Narrative Date of Service: 11/07/16 - General Chief Complaint: Abdominal Pain Time Seen by Provider: 11/07/16 16:03 Source: patient, family, RN notes reviewed, past records Exam Limitations: no limitations - Immun/Allergies/Home Medications Immunizatons: IMMUNIZATION HX Immunizations Up to Date Yes History of Influenza Vaccine Yes Hx Pneumococcal Vaccination Yes Allergies/Adverse Reactions: Allergies Sulfa (Sulfonamide Antibiotics) [Sulfa(Sulfonamide Antibiotics)] Allergy (Severe , Verified 11/07/16 15:56) Other confusion Penicillins Allergy (Intermediate, Verified 11/07/16 15:56) Hives Home Medications: HOME MEDICATIONS Acetaminophen [Tylenol] 650 mg PO Q4H PRN 01/13/16 [Last Taken Unknown] Alprazolam [Xanax Xr] 0.5 mg PO QID 01/13/16 [Last Taken Unknown] Carvedilol [Coreg] 3.125 mg PO DAILY 01/13/16 [Last Taken Unknown] Ferrous Sulfate [Iron] 325 mg PO DAILY 01/13/16 [Last Taken Unknown] Levalbuterol HCl [Xopenex] 0.63 mg IH Q3H PRN 01/13/16 [Last Taken Unknown] Levothyroxine Sodium [Synthroid] 88 mcg PO DAILY 01/13/16 [Last Taken Unknown] oxyCODONE HCL/ACETAMINOPHEN [Percocet 10-325 mg Tablet] 1 each PO QID 01/13/16 [ Last Taken Unknown] - Pain Score Pain Score #1 Pain Score: 9 Abdominal Pain Onset Location: RUQ, LUQ, epigastric Pain Radiation: no radiation - History of Present Illness Narrative: 71 y/o male brought to the ED by his for a CT scan of the abdomen. He was seen in [place] yesterday for chronic constipation. He had not had a bowel movement in 4 or 5 days at that time other than passing small amounts of "brown water." He was started on Linzess. An xray was done that showed a possible bowel obstruction. He was informed that he needed to have a CT for further instruction. He take Percocet for chronic back pain. Timing: constant Quality: aching Prior Abdominal Problems: Present: similar symptoms Review of Systems - Review of Systems Constitutional: Present: malaise. Absent: fever, chills EYE: Present: no symptoms reported ENT: Present: no symptoms reported Respiratory: Absent: shortness of breath, cough Cardiology: Absent: chest pain, syncope Gastrointestinal/Abdominal: Present: nausea, diarrhea, constipation. Absent: vomiting Genitourinary: Absent: dysuria, hematuria Musculoskeletal: Present: back pain, muscle pain, neck pain Skin: Absent: rash, lesions, lumps Neurological: Absent: dizziness/light-headedness, weakness Endocrine: Present: no symptoms reported Hematologic/Lymphatic: Present: no symptoms reported Psych: Present: no symptoms reported - Patient's Past Medical History Patient History - Medical: Anxiety, Arthritis, Chronic Pain, Depression, GERD, Migraines, Other Patient History - Cardiac/Respiratory: Atrial Fibrillation, Coronary Heart Disease, Hypertension, Hyperlipidemia, Myocardial Infarction, Pneumonia Patient History - Cancer: No Hx of Cancer Patient History - Surgical Procedures: Back Surgery, Cholecystectomy, Other Patient History - Other: None - Social History Living Situations: spouse Abuse History: No History of abuse Psych History: No pertinent hx Smoking Status: Former smoker Alcohol Use: none Drug Use: none - Immunizations Immunizations Up to Date: Yes Hx Pneumococcal Vaccination: Yes History of Influenza Vaccine: Yes Physical Exam - Physical Exam General Appearance: Present: alert, no apparent distress, thin, other - Frail appearing, looks older than stated age Respiratory: Present: no respiratory distress, normal breath sounds, no accessory muscle use, lungs clear Cardiovascular/Chest: Present: regular rate, rhythm, no murmur, normal peripheral pulses Gastrointestinal/Abdominal: Present: normal bowel sounds, nondistended, soft, tenderness - Moderate - upper abdomen. Absent: guarding, mass Extremity Exam: Present: normal inspection, no edema Neurological Exam: Present: alert, oriented, normal mood/affect, no motor/ sensory deficits Skin Exam: Present: warm/dry, pallor ED Progress - Results and Orders Patient's Lab Results:: I have reviewed the patient's lab results. - Vital Signs Patient's Vital Signs:: I have reviewed the patient's vital signs. Vital Signs: Vital Signs 11/07/16 15:52 Temperature 35.9 C L Pulse Rate 104 H Respiratory 14 Rate Blood Pressure 144/84 O2 Sat by Pulse 95 Oximetry - CT/Ultrasound CT/Ultrasound Narrative: CT Abdomen/Pelvis ([facility] preliminary report) shows no evidence of perforation or obstruction - Progress/Reassessment Chief Complaint: Abdominal Pain Progress:: Improved Plan - Plan Plan: Discussed CT results with patient and , reassured that there is no obstruction, discussed abnormal thickening in cecal wall and recommended further evaluation as patient is overdue for a colonoscopy, offered to give enema here but patient wants to go home. He is hoping that with starting the Linzess and taking the oral contrast for the CT, he will be able to have a bowel movement. Departure - Departure Clinical Impression: Constipation Qualifiers: Constipation type: drug induced constipation Qualified Code(s): K59.03 - Drug induced constipation Disposition: Home Follow Up Needed Condition: Stable Instructions: Constipation, Adult, [id number] Additional Instructions: Continue your current medications Return to ER if symptoms worsen Talk to your PCP about a colonoscopy d/t the changes in your bowel wall seen on your CT Referrals: Chase Padron MD [Primary Care Provider] -
[2016-11-07] MEDS ORDERED: MORPHINE SULFATE 2 MG/ML DISP.SYRIN ONE ×2 (16:18→18:28)
[2016-11-07] MEDS ORDERED: ONDANSETRON HCL/PF 2 MG/ML VIAL ONE ×2 (16:18→17:23)
[2016-11-07 16:24] LABS: Hematocrit 40.9 % (42.0-52.0); Hemoglobin 12.9 gm/dL (13.5-18.0); Mean Cell Volume 86.7 fl (78-100); Mean Corpuscular Hemoglobin 27.3 pg (27-31); Mean Corpuscular Hgb Conc 31.5 g/dl (32-36); Mean Platelet Volume 9.7 fl (6.0-9.5); Neutrophil # 3.2 K/mm3 (1.3-6.0); Neutrophil % 55.8 % (42-75.0); Platelet Count 297 K/mm3 (150-450); Red Blood Count 4.72 M/mm3 (4.7-6.0); Red Cell Distribution Width 15.5 % (11.5-14.0); White Blood Count 5.8 K/mm3 (4.0-10.5)
[2016-11-07 16:52] LABS: Albumin * 3.1 gm/dl (3.4-5.0); Anion Gap 15.2 mmol/L (6.8-13.8); BUN/Creatinine Ratio 11.6 (9.0-21.6); Bilirubin, Total 0.5 mg/dL (0.0-1.1); Ca. Corrected For Albumin 9.2 mg/dL (8.4-10.2); Calcium * 8.8 mg/dL (7.9-10.9); Carbon Dioxide 26.7 mmol/L (24-32.6); Potassium 3.9 mmol/L (3.4-4.6); Total Protein 7.9 gm/dL (6.2-8.2)
[2016-11-07] MEDS ORDERED: DIATRIZOATE MEGLUMINE, SODIUM 30 ML BTL PO ONE (16:54)
[2016-11-07] MEDS ORDERED: DIATRIZOATE MEGLUMINE, SODIUM 30 ML BTL ONE (16:55)
[2016-11-07 19:44] VITALS: BP 119/76
== END 2016-11-07 19:43 | disposition home or self-care (01) ==
LOC: ER 15:48
DX: K59.03 Drug induced constipation (principal); M19.90 Unspecified osteoarthritis, unspecified site; G89.29 Other chronic pain; F41.8 Other specified anxiety disorders; K21.9 Gastro-esophageal reflux disease without esophagitis; I48.91 Unspecified atrial fibrillation; Z79.01 Long term (current) use of anticoagulants; I25.2 Old myocardial infarction; I10 Essential (primary) hypertension; E78.5 Hyperlipidemia, unspecified
CPT/HCPCS: 36415; 74177; 80053; 85025; 96374; 96375; 99284; J2405

== ENCOUNTER 2016-11-08 19:52 | Emergency (ER) | payer MEDICARE, OTHER ==
[2016-11-08 19:59] VITALS: BP 122/81
--- NOTE | 2016-11-08 20:18 | ERNOTE ---
Abdominal HPI - Narrative Date of Service: 11/08/16 - General Chief Complaint: Constipation Time Seen by Provider: 11/08/16 20:00 Source: patient Exam Limitations: no limitations - Immun/Allergies/Home Medications Immunizatons: IMMUNIZATION HX Immunizations Up to Date Yes History of Influenza Vaccine Yes Hx Pneumococcal Vaccination Yes Allergies/Adverse Reactions: Allergies Sulfa (Sulfonamide Antibiotics) [Sulfa(Sulfonamide Antibiotics)] Allergy (Severe , Verified 11/08/16 19:55) Other confusion Penicillins Allergy (Intermediate, Verified 11/08/16 19:55) Hives Home Medications: HOME MEDICATIONS Acetaminophen [Tylenol] 650 mg PO Q4H PRN 01/13/16 [Last Taken Unknown] Alprazolam [Xanax Xr] 0.5 mg PO QID 01/13/16 [Last Taken Unknown] Carvedilol [Coreg] 3.125 mg PO DAILY 01/13/16 [Last Taken Unknown] Ferrous Sulfate [Iron] 325 mg PO DAILY 01/13/16 [Last Taken Unknown] Levalbuterol HCl [Xopenex] 0.63 mg IH Q3H PRN 01/13/16 [Last Taken Unknown] Levothyroxine Sodium [Synthroid] 88 mcg PO DAILY 01/13/16 [Last Taken Unknown] oxyCODONE HCL/ACETAMINOPHEN [Percocet 10-325 mg Tablet] 1 each PO QID 01/13/16 [ Last Taken Unknown] - History of Present Illness Narrative: Patient states he was in the ER last evening and had a CT confirming he did not have an abdominal obstruction. Has not had a BM for 5 days and is still in discomfort. Timing: constant Quality: moderate, cramping Modifying Factors - (Worsens): Present: defecating Associated Symptoms: Present: denies symptoms Prior Abdominal Problems: Present: similar symptoms Prior Treatment: Present: recently seen, treated by physician - Was told that the oral contrast would move the stool out. Review of Systems - Narrative Narrative: States he has not had a BM for 5 days and came to the ER last evening with abdominal discomfort. CT revealed no obstruction but did have constipation. Has not taken any medication because he was told the oral contrast would cause the stool to move. However continues with the symptoms and wishes some relief. Denies any other complaints. - Review of Systems Constitutional: Present: no symptoms reported Respiratory: Present: no symptoms reported Cardiology: Present: no symptoms reported, other - history of a-fib on eliquis Gastrointestinal/Abdominal: Present: constipation, abdominal pain, other - Describes as cramping LUQ over to RUQ. Intermittent. Genitourinary: Present: no symptoms reported Musculoskeletal: Present: no symptoms reported Skin: Present: no symptoms reported Neurological: Present: no symptoms reported - Patient's Past Medical History Patient History - Medical: Anxiety, Arthritis, Chronic Pain, Depression, GERD, Migraines, Other Patient History - Cardiac/Respiratory: Atrial Fibrillation, Coronary Heart Disease, Hypertension, Hyperlipidemia, Myocardial Infarction, Pneumonia Patient History - Cancer: No Hx of Cancer Patient History - Surgical Procedures: Back Surgery, Cholecystectomy, Other Patient History - Other: None - Social History Living Situations: home Abuse History: No History of abuse Psych History: No pertinent hx Smoking Status: Current every day smoker Have you smoked in the past 12 months: Yes Do you dip or chew tobacco: No Alcohol Use: none Drug Use: none - Immunizations Immunizations Up to Date: Yes Hx Pneumococcal Vaccination: Yes History of Influenza Vaccine: Yes Physical Exam - Physical Exam General Appearance: Present: wd/wn, alert, moderate distress Neck: Present: normal inspection, nontender, supple, full range of motion Respiratory: Present: no respiratory distress, normal breath sounds, no accessory muscle use, chest nontender, lungs clear Cardiovascular/Chest: Present: irregularly irregular, other - Mild systolic murmur Gastrointestinal/Abdominal: Present: distended, other - Firm with hyperactive BS. No rebound Rectal Exam: Present: nontender, other - Moderate amount of stool in the vault but not impacted Neurological Exam: Present: alert, oriented, normal mood/affect Skin Exam: Present: normal color, warm/dry ED Progress - Vital Signs Patient's Vital Signs:: I have reviewed the patient's vital signs. Vital Signs: Vital Signs 11/08/16 19:56 Temperature 36.6 C Pulse Rate 91 Respiratory 16 Rate Blood Pressure 122/81 O2 Sat by Pulse 91 Oximetry - Progress/Reassessment Chief Complaint: Constipation Progress:: Re-examined - Again small results. Progress Note-Subjective: 11/08/16 21:01 Has had some small results. Nothing significant. Departure - Departure Clinical Impression: Constipation Disposition: Home Follow Up Needed Condition: Good Instructions: Constipation, Adult, [id number] Additional Instructions: Stool appears to be higher than we expected. When you get home drink the bottle of mag citrate. Should have results in the next 12 hrs. Continue the home stool softener. Drink lots of water and follow up with family provider on Thursday for evaluation. If you worsen let us know.
[2016-11-08] MEDS ORDERED: MAGNESIUM CITRATE 300 ML BTL ONE (21:05)
[2016-11-08] MEDS ORDERED: MAGNESIUM CITRATE 300 ML BTL PO ONE (21:08)
== END 2016-11-08 21:15 | disposition home or self-care (01) ==
LOC: ER 19:52
DX: K59.00 Constipation, unspecified (principal); F17.200 Nicotine dependence, unspecified, uncomplicated

== ENCOUNTER 2016-11-22 05:14 | Emergency (ER) | payer MEDICARE, OTHER ==
--- NOTE | 2016-11-22 05:30 | ERNOTE ---
ER Male HPI Date of Service: 11/22/16 Stated Complaint: URINARY PROBLEM ER Male: urinary retention Time Seen by Provider: 11/22/16 06:24 Source: patient Immunizations: IMMUNIZATION HX Immunizations Up to Date Yes History of Influenza Vaccine Yes Hx Pneumococcal Vaccination No Allergies/Adverse Reactions: Allergies Sulfa (Sulfonamide Antibiotics) [Sulfa(Sulfonamide Antibiotics)] Allergy (Severe , Verified 11/22/16 05:20) Other confusion Penicillins Allergy (Intermediate, Verified 11/22/16 05:20) Hives Home Medications: HOME MEDICATIONS Acetaminophen [Tylenol] 650 mg PO Q4H PRN 01/13/16 [Last Taken Unknown] Alprazolam [Xanax Xr] 0.5 mg PO QID 01/13/16 [Last Taken Unknown] Carvedilol [Coreg] 3.125 mg PO DAILY 01/13/16 [Last Taken Unknown] Ferrous Sulfate [Iron] 325 mg PO DAILY 01/13/16 [Last Taken Unknown] Levalbuterol HCl [Xopenex] 0.63 mg IH Q3H PRN 01/13/16 [Last Taken Unknown] Levothyroxine Sodium [Synthroid] 88 mcg PO DAILY 01/13/16 [Last Taken Unknown] oxyCODONE HCL/ACETAMINOPHEN [Percocet 10-325 mg Tablet] 1 each PO QID 01/13/16 [ Last Taken Unknown] - History of Present Illness Narrative: 71 year old that has not urinated in three days. Denies any fevers, chills, or back pain. He has had similar problems previously and has had laser prostectecomy one year ago. Hx of CAD, prostatic hypertrophy, cervical and lumbar spine fusions. s/p CT of the abdomen and pelvis on 11/07/16 which demonstrated a 3.2 cm infrarenal aortic aneurysm. Timing: Present: constant Quality: Present: severe Onset Location: Present: other Radiation: Present: none Activities at Onset: Present: none Prior Abdominal Problems: Present: similar symptoms Modifying Factors - (Improves): Present: other - none Modifying Factors - (Worsens): Present: other - none Associated Symptoms: Present: other - none Prior Treatment: Present: treated by physician Review of Systems - Review of Systems Constitutional: Present: no symptoms reported EYE: Present: no symptoms reported ENT: Present: no symptoms reported Respiratory: Present: no symptoms reported Cardiology: Present: no symptoms reported Gastrointestinal/Abdominal: Present: no symptoms reported Genitourinary: Present: See HPI Musculoskeletal: Present: no symptoms reported Skin: Present: no symptoms reported Neurological: Present: no symptoms reported Endocrine: Present: no symptoms reported Hematologic/Lymphatic: Present: no symptoms reported Psych: Present: no symptoms reported - Patient's Past Medical History Patient History - Medical: Anxiety, Arthritis, Chronic Pain, Depression, GERD, Migraines, Other Patient History - Cardiac/Respiratory: Atrial Fibrillation, Coronary Heart Disease, Hypertension, Hyperlipidemia, Myocardial Infarction, Pneumonia Patient History - Cancer: No Hx of Cancer Patient History - Surgical Procedures: Back Surgery, Cholecystectomy, Other Patient History - Other: None - Social History Living Situations: home Abuse History: No History of abuse Psych History: No pertinent hx Have you smoked in the past 12 months: No Do you dip or chew tobacco: No Alcohol Use: none Drug Use: none - Immunizations Immunizations Up to Date: Yes Hx Pneumococcal Vaccination: No History of Influenza Vaccine: Yes Physical Exam - Physical Exam General Appearance: Present: no apparent distress Head Exam: Present: normal inspection Eye Exam: Normal inspection: bilateral Ears, Nose, Throat: Present: normal ENT inspection Neck: Present: normal inspection Respiratory: Present: no respiratory distress Cardiovascular/Chest: Present: regular rate, rhythm Gastrointestinal/Abdominal: Present: tenderness - in the area of the bladder Back Exam: Present: normal inspection Extremity Exam: Present: normal inspection Neurological Exam: Present: alert, oriented, normal mood/affect Skin Exam: Present: normal color ED Progress - Results and Orders Patient's Lab Results:: I have reviewed the patient's lab results. - Vital Signs Patient's Vital Signs:: I have reviewed the patient's vital signs. Vital Signs: Vital Signs 11/22/16 05:21 Temperature 36.3 C L Pulse Rate 103 H Respiratory 96 H Rate Blood Pressure 123/76 O2 Sat by Pulse 96 Oximetry - Progress/Reassessment Chief Complaint: Urinary Tract Problems Progress:: Improved Progress Note-Subjective: 11/22/16 06:21 Bladder scanner showed 159 ml. After the placement of the Hernandez the pressure was subsiding, and denied any pain. 11/22/16 06:22 It is doubtful that he did not urinate sometime in the last three days since the BUN/creatinine were normal, and there was a minimal amount of urine in the bladder. He was advised to follow up with his urologist next week. Departure Clinical Impression: Urinary retention - Departure Disposition: Home self-care Condition: Good Instructions: Acute Urinary Retention, Male Print Language: Yakut Additional Instructions: If you have increased pressure or uncomfortable return to the ED. See your urologist next week. Referrals: Chase Padron MD [Primary Care Provider] - Amrit Lazcano MD [Non Staff Physicians] -
[2016-11-22 05:50] LABS: Urine Bilirubin Negative (NEGATIVE); Urine Blood Negative /ul (NEGATIVE); Urine Ketone Negative (NEGATIVE); Urine Nitrite Negative (NEGATIVE); Urine Protein Negative (NEGATIVE); Urine Specific Gravity >=1.030 SP.GR. (1.005-1.030); Urine Urobilinogen Normal (NORMAL)
[2016-11-22 05:55] LABS: Hematocrit 35.4 % (42.0-52.0); Mean Cell Volume 89.6 fl (78-100); Mean Corpuscular Hemoglobin 27.8 pg (27-31); Mean Corpuscular Hgb Conc 31.1 g/dl (32-36); Neutrophil # 3.4 K/mm3 (1.3-6.0); Neutrophil % 60.4 % (42-75.0); Platelet Count 185 K/mm3 (150-450); Red Blood Count 3.95 M/mm3 (4.7-6.0); Red Cell Distribution Width 15.9 % (11.5-14.0); White Blood Count 5.6 K/mm3 (4.0-10.5)
[2016-11-22 05:59] LABS: Anion Gap 13.3 mmol/L (6.8-13.8); BUN/Creatinine Ratio 14.8 (9.0-21.6); Calcium * 8.3 mg/dL (7.9-10.9); Carbon Dioxide 24.8 mmol/L (24-32.6); Estimated Creat Clear 66.4; Potassium 3.1 mmol/L (3.4-4.6)
[2016-11-22 06:00] VITALS: BP 120/72
[2016-11-22 06:02] LABS: Urine Appearance Clear; Urine Bacteria None Seen; Urine Color Dark Yellow; Urine RBC None Seen /hpf (0-5); Urine WBC None Seen /hpf (0-5)
[2016-11-22] MEDS ORDERED: POTASSIUM CHLORIDE 20 MEQ TABLET.SA PO ONE (06:08)
[2016-11-22] MEDS ORDERED: POTASSIUM CHLORIDE 20 MEQ TABLET.SA ONE (06:13)
== END 2016-11-22 06:20 | disposition home or self-care (01) ==
LOC: ER 05:14
PROC: 0T9B70Z Drainage of Bladder with Drainage Device, Via Natural or Artificial Opening (ICD-10-PCS; principal; 2016-11-22)
DX: R33.9 Retention of urine, unspecified (principal); M19.90 Unspecified osteoarthritis, unspecified site; K21.9 Gastro-esophageal reflux disease without esophagitis; Z79.01 Long term (current) use of anticoagulants; I25.2 Old myocardial infarction; I10 Essential (primary) hypertension; F41.8 Other specified anxiety disorders

== ENCOUNTER 2016-11-22 16:32 | Emergency (ER) | payer MEDICARE, OTHER ==
[2016-11-22 16:59] VITALS: BP 116/60
--- NOTE | 2016-11-22 17:32 | ERNOTE ---
ER Male HPI Stated Complaint: WANTS CATHETER ROMOVED PAINFUL Time Seen by Provider: 11/22/16 17:19 Source: patient Exam Limitations: no limitations Immunizations: IMMUNIZATION HX Immunizations Up to Date Yes History of Influenza Vaccine Yes Hx Pneumococcal Vaccination Yes Allergies/Adverse Reactions: Allergies Sulfa (Sulfonamide Antibiotics) [Sulfa(Sulfonamide Antibiotics)] Allergy (Severe , Verified 11/22/16 16:59) Other confusion Penicillins Allergy (Intermediate, Verified 11/22/16 16:59) Hives Home Medications: HOME MEDICATIONS Acetaminophen [Tylenol] 650 mg PO Q4H PRN 01/13/16 [Last Taken Unknown] Alprazolam [Xanax Xr] 0.5 mg PO QID 01/13/16 [Last Taken Unknown] Carvedilol [Coreg] 3.125 mg PO DAILY 01/13/16 [Last Taken Unknown] Ferrous Sulfate [Iron] 325 mg PO DAILY 01/13/16 [Last Taken Unknown] Levalbuterol HCl [Xopenex] 0.63 mg IH Q3H PRN 01/13/16 [Last Taken Unknown] Levothyroxine Sodium [Synthroid] 88 mcg PO DAILY 01/13/16 [Last Taken Unknown] oxyCODONE HCL/ACETAMINOPHEN [Percocet 10-325 mg Tablet] 1 each PO QID 01/13/16 [ Last Taken Unknown] - History of Present Illness Narrative: Patient was seen in the ER this morning as he had not urinated in three days. He has a history BPH and had to have a catheter a few times, had surgery over a year ago. This morning the bladder scan only showed 120ml, he had normal labs but insisted that he have a catheter inserted. He now states that the catheter is hurting him too much and wants it removed, no other new symptoms Review of Systems - Review of Systems Constitutional: Absent: recent illness, fever Respiratory: Absent: shortness of breath Cardiology: Absent: chest pain Gastrointestinal/Abdominal: Present: See HPI. Absent: nausea, vomiting Genitourinary: Present: See HPI Skin: Absent: rash - Patient's Past Medical History Patient History - Medical: Anxiety, Arthritis, Chronic Pain, Depression, GERD, Migraines, Other - BPH Patient History - Cardiac/Respiratory: Atrial Fibrillation, Coronary Heart Disease, Hypertension, Hyperlipidemia, Myocardial Infarction, Pneumonia Patient History - Cancer: No Hx of Cancer Patient History - Surgical Procedures: Back Surgery, Cholecystectomy, Other Patient History - Other: None - Social History Living Situations: spouse Abuse History: No History of abuse Psych History: No pertinent hx Smoking Status: Former smoker Have you smoked in the past 12 months: No Do you dip or chew tobacco: No Alcohol Use: none Drug Use: none - Immunizations Immunizations Up to Date: Yes Hx Pneumococcal Vaccination: Yes History of Influenza Vaccine: Yes Physical Exam - Physical Exam General Appearance: Present: wd/wn, alert, no apparent distress Respiratory: Present: no respiratory distress Gastrointestinal/Abdominal: Present: normal bowel sounds, nondistended, soft, tenderness - minimal suprapubic Neurological Exam: Present: alert, oriented, normal mood/affect Skin Exam: Present: normal color, warm/dry ED Progress - Vital Signs Patient's Vital Signs:: I have reviewed the patient's vital signs. Vital Signs: Vital Signs 11/22/16 16:54 Temperature 36.6 C Pulse Rate 63 Respiratory 13 Rate Blood Pressure 116/60 O2 Sat by Pulse 97 Oximetry - Progress/Reassessment Chief Complaint: Genitourinary Problem Progress Note-Subjective: 11/22/16 17:25 since the indication for insertion was questionable in the first place I don't see any reason not to remove it. Departure Clinical Impression: Urinary retention due to benign prostatic hyperplasia - Departure Disposition: Home self-care Condition: Stable Instructions: Acute Urinary Retention, Male, [id number] Additional Instructions: call your urologist after the weekend for follow up
== END 2016-11-22 17:32 | disposition home or self-care (01) ==
LOC: ER 16:32
DX: N40.1 Benign prostatic hyperplasia with lower urinary tract symptoms (principal); R33.8 Other retention of urine; I48.91 Unspecified atrial fibrillation; Z79.01 Long term (current) use of anticoagulants; M19.90 Unspecified osteoarthritis, unspecified site; G89.29 Other chronic pain; K21.9 Gastro-esophageal reflux disease without esophagitis; I10 Essential (primary) hypertension; E78.5 Hyperlipidemia, unspecified

== ENCOUNTER 2016-12-08 20:00 | Emergency (ER) | payer MEDICARE, OTHER ==
[2016-12-08 20:21] VITALS: BP 133/81
--- NOTE | 2016-12-08 20:42 | ERNOTE ---
ER Male HPI Stated Complaint: URINARY PROBLEM ER Male: urinary retention Time Seen by Provider: 12/08/16 20:30 Source: patient Exam Limitations: no limitations Immunizations: IMMUNIZATION HX Immunizations Up to Date Yes History of Influenza Vaccine No Hx Pneumococcal Vaccination Yes Allergies/Adverse Reactions: Allergies Sulfa (Sulfonamide Antibiotics) [Sulfa(Sulfonamide Antibiotics)] Allergy (Severe , Verified 11/22/16 16:59) Other confusion Penicillins Allergy (Intermediate, Verified 11/22/16 16:59) Hives Home Medications: HOME MEDICATIONS Acetaminophen [Tylenol] 650 mg PO Q4H PRN 01/13/16 [Last Taken Unknown] Alprazolam [Xanax Xr] 0.5 mg PO QID 01/13/16 [Last Taken Unknown] Carvedilol [Coreg] 3.125 mg PO DAILY 01/13/16 [Last Taken Unknown] Levalbuterol HCl [Xopenex] 0.63 mg IH Q3H PRN 01/13/16 [Last Taken Unknown] Levothyroxine Sodium [Synthroid] 88 mcg PO DAILY 01/13/16 [Last Taken Unknown] oxyCODONE HCL/ACETAMINOPHEN [Percocet 10-325 mg Tablet] 1 each PO QID 01/13/16 [ Last Taken Unknown] Fesoterodine Fumarate [Toviaz] 4 mg PO DAILY 12/08/16 [Last Taken Unknown] - History of Present Illness Narrative: pt has been having problems with urinary retention for a few weeks. He was seen in the ED and was referred to urology, he saw urology last week and is going to be scheduled for a procedure. Today he has only been able to urinate a small amount if he strains. Timing: Present: getting worse Quality: Present: moderate, severe, cramping, fullness Onset Location: Present: suprapubic Radiation: Present: none Prior Abdominal Problems: Present: similar symptoms Associated Symptoms: Absent: fever/chills, diaphoresis, loss of bladder control Prior Treatment: Present: recently seen Review of Systems - Review of Systems Constitutional: Absent: recent illness, fever, chills EYE: Present: no symptoms reported ENT: Present: no symptoms reported Respiratory: Absent: shortness of breath Gastrointestinal/Abdominal: Present: See HPI. Absent: nausea, vomiting, constipation Genitourinary: Present: See HPI, decreased urinary output. Absent: frequency, dysuria, hematuria Musculoskeletal: Absent: back pain Skin: Present: no symptoms reported Neurological: Present: no symptoms reported Endocrine: Absent: excessive sweating, flushing Hematologic/Lymphatic: Present: no symptoms reported Psych: Present: no symptoms reported - Patient's Past Medical History Patient History - Medical: Anxiety, Arthritis, Chronic Pain, Depression, GERD, Migraines, Other Patient History - Cardiac/Respiratory: Atrial Fibrillation, Coronary Heart Disease, Hypertension, Hyperlipidemia, Myocardial Infarction, Pneumonia Patient History - Cancer: No Hx of Cancer Patient History - Surgical Procedures: Back Surgery, Cholecystectomy, Other Patient History - Other: None - Social History Living Situations: spouse Abuse History: No History of abuse Psych History: No pertinent hx Have you smoked in the past 12 months: Yes Do you dip or chew tobacco: No Alcohol Use: none Drug Use: none - Immunizations Immunizations Up to Date: Yes Hx Pneumococcal Vaccination: Yes History of Influenza Vaccine: No Physical Exam - Physical Exam General Appearance: Present: wd/wn, alert, no apparent distress Head Exam: Present: normal inspection, no evidence of injury Neck: Present: normal inspection, supple Respiratory: Present: no respiratory distress, no accessory muscle use Gastrointestinal/Abdominal: Present: normal bowel sounds, tenderness - suprapubic, distended - bladder slightly. Absent: guarding, rebound Back Exam: Present: normal inspection, no CVA tenderness Extremity Exam: Present: normal inspection, no edema Neurological Exam: Present: alert, oriented, normal mood/affect, no motor/ sensory deficits Skin Exam: Present: normal color, warm/dry Lymphatic Exam: Present: no adenopathy ED Progress - Results and Orders Patient's Lab Results:: I have reviewed the patient's lab results. Results and Orders: Laboratory Tests 12/08/16 20:45 Urine Color Yellow Urine Appearance Clear Urine pH 6.5 Ur Specific Broad Top <=1.005 Urine Protein Negative Urine Glucose (UA) Negative Urine Ketones Negative Urine Blood Negative Urine Nitrate Negative Urine Bilirubin Negative Urine Urobilinogen Normal Ur Leukocyte Esterase Negative Urine RBC None seen Urine WBC None seen Ur Epithelial Cells Trace Urine Bacteria None seen Urine Culture Comments Culture to follow - Vital Signs Patient's Vital Signs:: I have reviewed the patient's vital signs. Vital Signs: Vital Signs 12/08/16 20:15 Temperature 36.5 C Pulse Rate 67 Respiratory 16 Rate Blood Pressure 133/81 O2 Sat by Pulse 98 Oximetry - Progress/Reassessment Chief Complaint: Genitourinary Problem Progress:: Improved Progress Note-Subjective: 12/08/16 20:51 pt decided that he would try to urinate and feels he completely emptied his bladder. He was able to get us a small sample for UCS. 12/08/16 21:09 Bladder scan showed approx 165 mL of urine in the bladder. I will wait on urinalysis but I do not see that as significant retention to require a indwelling catheter. Departure Clinical Impression: Urinary retention due to benign prostatic hyperplasia - Departure Disposition: Home Follow Up Needed Condition: Good Instructions: Acute Urinary Retention, Male Additional Instructions: See your urologist as scheduled. Return to ER if you are not able to urinate, have fever or chills or increasing pain. Referrals: Chase Padron MD [Primary Care Provider] -
[2016-12-08 20:59] LABS: Urine Bilirubin Negative (NEGATIVE); Urine Blood Negative /ul (NEGATIVE); Urine Ketone Negative (NEGATIVE); Urine Nitrite Negative (NEGATIVE); Urine Protein Negative (NEGATIVE); Urine Specific Gravity <=1.005 SP.GR. (1.005-1.030); Urine Urobilinogen Normal (NORMAL); Urine pH 6.5 pH (5.0-7.0)
[2016-12-08 21:26] LABS: Urine Appearance Clear; Urine Bacteria None Seen; Urine Color Yellow; Urine RBC None Seen /hpf (0-5); Urine WBC None Seen /hpf (0-5)
== END 2016-12-08 21:40 | disposition home or self-care (01) ==
LOC: ER 20:00
PROC: BT20ZZZ Computerized Tomography (CT Scan) of Bladder (ICD-10-PCS; principal; 2016-12-08)
DX: N40.1 Benign prostatic hyperplasia with lower urinary tract symptoms (principal); R33.8 Other retention of urine; G89.29 Other chronic pain; M19.90 Unspecified osteoarthritis, unspecified site; K21.9 Gastro-esophageal reflux disease without esophagitis; I48.91 Unspecified atrial fibrillation; Z79.01 Long term (current) use of anticoagulants; I25.2 Old myocardial infarction; I10 Essential (primary) hypertension; E78.5 Hyperlipidemia, unspecified

== ENCOUNTER 2016-12-10 17:16 | Emergency (ER) | payer MEDICARE, OTHER ==
[2016-12-10 17:47] VITALS: BP 138/89
== END 2016-12-10 18:10 | disposition left against medical advice (07) ==
LOC: ER 17:16
DX: Z53.21 Procedure and treatment not carried out due to patient leaving prior to being seen by health care provider (principal)

== ENCOUNTER 2016-12-12 06:16 | Emergency (ER) | payer MEDICARE, OTHER ==
[2016-12-12 06:30] VITALS: BP 119/77
--- NOTE | 2016-12-12 07:04 | ERNOTE ---
ER Male HPI Stated Complaint: NEEDS CATH ER Male: urinary retention Time Seen by Provider: 12/12/16 07:03 Source: patient, RN notes reviewed Exam Limitations: no limitations Immunizations: IMMUNIZATION HX Immunizations Up to Date Yes History of Influenza Vaccine No Hx Pneumococcal Vaccination No Allergies/Adverse Reactions: Allergies Sulfa (Sulfonamide Antibiotics) [Sulfa(Sulfonamide Antibiotics)] Allergy (Severe , Verified 12/12/16 06:31) Other confusion Penicillins Allergy (Intermediate, Verified 12/12/16 06:31) Hives Home Medications: HOME MEDICATIONS Acetaminophen [Tylenol] 650 mg PO Q4H PRN 01/13/16 [Last Taken Unknown] Alprazolam [Xanax Xr] 0.5 mg PO QID 01/13/16 [Last Taken Unknown] Carvedilol [Coreg] 3.125 mg PO DAILY 01/13/16 [Last Taken Unknown] Levalbuterol HCl [Xopenex] 0.63 mg IH Q3H PRN 01/13/16 [Last Taken Unknown] Levothyroxine Sodium [Synthroid] 88 mcg PO DAILY 01/13/16 [Last Taken Unknown] oxyCODONE HCL/ACETAMINOPHEN [Percocet 10-325 mg Tablet] 1 each PO QID 01/13/16 [ Last Taken Unknown] Fesoterodine Fumarate [Toviaz] 4 mg PO DAILY 12/08/16 [Last Taken Unknown] - History of Present Illness Narrative: Patient presents tonight complaining of urinary retention. This appears to be an ongoing issue, and he is without a catheter at this time. He notes that he has not urinated since yesterday morning, and he feels like his bladder is really full. He has asked other times, and sometimes received a catheter and sometimes not received a catheter. He feels pretty strongly that he needs a catheter. Timing: Present: constant, getting worse Quality: Present: mild, fullness Onset Location: Present: suprapubic Radiation: Present: none Activities at Onset: Present: rest Prior Abdominal Problems: Present: similar symptoms Modifying Factors - (Improves): Present: urinating Modifying Factors - (Worsens): Present: movement Associated Symptoms: Present: abdominal pain. Absent: fever/chills, diaphoresis , nausea, vomiting Prior Treatment: Present: recently seen, treated by physician - Urologist in [place] Review of Systems - Review of Systems Constitutional: Absent: recent illness, fever, chills, weakness, fatigue EYE: Absent: eye pain, blurred vision ENT: Absent: ear pain, sore throat Respiratory: Absent: shortness of breath, cough, orthopnea, wheezing Cardiology: Absent: chest pain, palpitations Gastrointestinal/Abdominal: Absent: nausea, vomiting, diarrhea, constipation, abdominal pain Genitourinary: Present: pain, decreased urinary output Musculoskeletal: Absent: back pain, muscle pain, muscle stiffness Skin: Present: no symptoms reported Neurological: Present: no symptoms reported Endocrine: Present: no symptoms reported Hematologic/Lymphatic: Present: no symptoms reported Psych: Present: no symptoms reported - Patient's Past Medical History Patient History - Medical: Anxiety, Arthritis, Chronic Pain, Depression, GERD, Migraines, Other Patient History - Cardiac/Respiratory: Atrial Fibrillation, Coronary Heart Disease, Hypertension, Hyperlipidemia, Myocardial Infarction, Pneumonia Patient History - Cancer: No Hx of Cancer Patient History - Surgical Procedures: Back Surgery, Cholecystectomy, Other Patient History - Other: None - Social History Living Situations: home Abuse History: No History of abuse Psych History: No pertinent hx Smoking Status: Light tobacco smoker Alcohol Use: none Drug Use: none - Immunizations Immunizations Up to Date: Yes Hx Pneumococcal Vaccination: No History of Influenza Vaccine: No Physical Exam - Physical Exam General Appearance: Present: wd/wn, alert, no apparent distress Head Exam: Present: normal inspection, no evidence of injury Eye Exam: Normal inspection: bilateral, PERRL: bilateral, EOMI: bilateral Ears, Nose, Throat: Present: normal ENT inspection, normal pharynx Neck: Present: normal inspection, nontender Respiratory: Present: no respiratory distress, normal breath sounds, no accessory muscle use, chest nontender, lungs clear Cardiovascular/Chest: Present: regular rate, rhythm, no murmur, normal peripheral pulses Gastrointestinal/Abdominal: Present: normal bowel sounds, nontender, nondistended, soft Back Exam: Present: normal inspection, normal range of motion Extremity Exam: Present: normal inspection, normal range of motion Neurological Exam: Present: alert, oriented, normal mood/affect, no motor/ sensory deficits Skin Exam: Present: normal color, warm/dry ED Progress - Vital Signs Patient's Vital Signs:: I have reviewed the patient's vital signs. Vital Signs: Vital Signs 12/12/16 06:25 Temperature 36.2 C L Pulse Rate 85 Respiratory 18 Rate Blood Pressure 119/77 O2 Sat by Pulse 99 Oximetry - Progress/Reassessment Chief Complaint: Genitourinary Problem Progress Note-Subjective: 12/12/16 07:43 Patient had a urinary catheter inserted, he had 200 mL of yellow urine out after I agreed to do so (secondary to this being the most he has had in his bladder on arrival here). He states he feels better now, the fullness is gone. This is a borderline catheter insertion, he is supposed to see his urologist this coming week. He has been known to decide he doesn't want the catheter secondary to pain, we shall have to see how this goes. If he continues to come in and ask for a catheter we shall have to rethink this and perhaps offer other solutions. Departure Clinical Impression: Urinary retention due to benign prostatic hyperplasia - Departure Disposition: Home self-care Condition: Good Instructions: Hernandez Catheter Care, Adult, Acute Urinary Retention, Male Referrals: Chase Padron MD [Primary Care Provider] - (5-7 days. PLEASE FOLLOW UP WITH YOUR UROLOGIST BY PHONE TODAY, MAKE AND KEEP AN APPOINTMENT FOR NEXT WEEK.)
== END 2016-12-12 07:58 | disposition home or self-care (01) ==
LOC: ER 06:16
PROC: 0T9B70Z Drainage of Bladder with Drainage Device, Via Natural or Artificial Opening (ICD-10-PCS; principal; 2016-12-12)
DX: N40.1 Benign prostatic hyperplasia with lower urinary tract symptoms (principal); R33.8 Other retention of urine; M19.90 Unspecified osteoarthritis, unspecified site; G89.29 Other chronic pain; K21.9 Gastro-esophageal reflux disease without esophagitis; I48.91 Unspecified atrial fibrillation; Z79.01 Long term (current) use of anticoagulants; I25.2 Old myocardial infarction; I10 Essential (primary) hypertension; E78.5 Hyperlipidemia, unspecified; F17.200 Nicotine dependence, unspecified, uncomplicated; T83.9XXA Unspecified complication of genitourinary prosthetic device, implant and graft, initial encounter

== ENCOUNTER 2016-12-12 15:28 | Emergency (ER) | payer MEDICARE, OTHER ==
[2016-12-12 15:34] VITALS: BP 116/62
--- NOTE | 2016-12-12 16:34 | ERNOTE ---
ER Male HPI Date of Service: 12/12/16 Stated Complaint: CATH ISSUES ER Male: other - Wants jaimes catheter removed Time Seen by Provider: 12/12/16 16:24 Source: patient, RN notes reviewed, past records Exam Limitations: no limitations Immunizations: IMMUNIZATION HX Immunizations Up to Date Yes History of Influenza Vaccine Yes Hx Pneumococcal Vaccination Yes Allergies/Adverse Reactions: Allergies Sulfa (Sulfonamide Antibiotics) [Sulfa(Sulfonamide Antibiotics)] Allergy (Severe , Verified 12/12/16 06:31) Other confusion Penicillins Allergy (Intermediate, Verified 12/12/16 06:31) Hives Home Medications: HOME MEDICATIONS Acetaminophen [Tylenol] 650 mg PO Q4H PRN 01/13/16 [Last Taken Unknown] Alprazolam [Xanax Xr] 0.5 mg PO QID 01/13/16 [Last Taken Unknown] Carvedilol [Coreg] 3.125 mg PO DAILY 01/13/16 [Last Taken Unknown] Levalbuterol HCl [Xopenex] 0.63 mg IH Q3H PRN 01/13/16 [Last Taken Unknown] Levothyroxine Sodium [Synthroid] 88 mcg PO DAILY 01/13/16 [Last Taken Unknown] oxyCODONE HCL/ACETAMINOPHEN [Percocet 10-325 mg Tablet] 1 each PO QID 01/13/16 [ Last Taken Unknown] Fesoterodine Fumarate [Toviaz] 4 mg PO DAILY 12/08/16 [Last Taken Unknown] - History of Present Illness Narrative: 71 year old male ambulatory to the ED for pain related to his jaimes catheter. He wants the catheter removed. It was just inserted here this morning. It was questionable at the time if he really needed the catheter. He has been seen several times for difficulty voiding, had a catheter placed and then returned wanting it out a short time later. He reports that he has an appointment to see his urologist on Thursday12/15/16. Prior Treatment: Present: recently seen, treated by physician Review of Systems - Review of Systems Constitutional: Present: no symptoms reported EYE: Present: no symptoms reported ENT: Present: no symptoms reported Respiratory: Present: no symptoms reported Cardiology: Present: no symptoms reported Gastrointestinal/Abdominal: Present: no symptoms reported Genitourinary: Present: See HPI Musculoskeletal: Present: no symptoms reported Skin: Present: no symptoms reported Neurological: Present: no symptoms reported Endocrine: Present: no symptoms reported Hematologic/Lymphatic: Present: no symptoms reported Psych: Present: no symptoms reported - Patient's Past Medical History Patient History - Medical: Anxiety, Arthritis, Chronic Pain, Depression, GERD, Migraines, Other Patient History - Cardiac/Respiratory: Atrial Fibrillation, Coronary Heart Disease, Hypertension, Hyperlipidemia, Myocardial Infarction, Pneumonia Patient History - Cancer: No Hx of Cancer Patient History - Surgical Procedures: Back Surgery, Cholecystectomy, Other Patient History - Other: None - Social History Living Situations: home Abuse History: No History of abuse Psych History: No pertinent hx Smoking Status: Light tobacco smoker Alcohol Use: none Drug Use: none - Immunizations Immunizations Up to Date: Yes Hx Pneumococcal Vaccination: Yes History of Influenza Vaccine: Yes Physical Exam - Physical Exam General Appearance: Present: wd/wn, alert, mild distress - appears uncomfortable , anxious Respiratory: Present: no respiratory distress, no accessory muscle use Cardiovascular/Chest: Present: normal peripheral pulses Extremity Exam: Present: normal inspection, normal range of motion Neurological Exam: Present: alert, oriented, normal mood/affect, no motor/ sensory deficits Skin Exam: Present: normal color, warm/dry ED Progress - Vital Signs Patient's Vital Signs:: I have reviewed the patient's vital signs. Vital Signs: Vital Signs 12/12/16 15:32 Temperature 36.5 C Pulse Rate 65 Respiratory 16 Rate Blood Pressure 116/62 O2 Sat by Pulse 97 Oximetry - Progress/Reassessment Chief Complaint: Genitourinary Problem Progress:: Improved Plan - Plan Plan: Jaimes catheter removed by nursing staff. Patient verbalizes improvement in pain. To see urology as scheduled on Thursday. Departure Clinical Impression: Jaimes catheter problem Qualifiers: Encounter type: initial encounter Qualified Code(s): T83.9XXA - Unspecified complication of genitourinary prosthetic device, implant and graft, initial encounter - Departure Disposition: Home Follow Up Needed Condition: Stable Additional Instructions: SEE YOUR UROLOGIST SCHEDULED Referrals: Chase Padron MD [Primary Care Provider] -
== END 2016-12-12 16:33 | disposition home or self-care (01) ==
LOC: ER 15:28
DX: T83.9XXA Unspecified complication of genitourinary prosthetic device, implant and graft, initial encounter (principal)

== ENCOUNTER 2017-01-10 13:42 | Emergency (ER) | payer MEDICARE, OTHER ==
--- NOTE | 2017-01-10 14:25 | ERNOTE ---
ER Male HPI Stated Complaint: CATHETER ER Male: urinary retention Time Seen by Provider: 01/10/17 14:13 Source: patient Exam Limitations: no limitations Immunizations: IMMUNIZATION HX Immunizations Up to Date Yes History of Influenza Vaccine Yes Hx Pneumococcal Vaccination Yes Allergies/Adverse Reactions: Allergies Sulfa (Sulfonamide Antibiotics) [Sulfa(Sulfonamide Antibiotics)] Allergy (Severe , Verified 01/10/17 14:02) Other confusion Penicillins Allergy (Intermediate, Verified 01/10/17 14:02) Hives Home Medications: HOME MEDICATIONS Acetaminophen [Tylenol] 650 mg PO Q4H PRN 01/13/16 [Last Taken Unknown] Alprazolam [Xanax Xr] 0.5 mg PO QID 01/13/16 [Last Taken Unknown] Carvedilol [Coreg] 3.125 mg PO DAILY 01/13/16 [Last Taken Unknown] Levalbuterol HCl [Xopenex] 0.63 mg IH Q3H PRN 01/13/16 [Last Taken Unknown] Levothyroxine Sodium [Synthroid] 88 mcg PO DAILY 01/13/16 [Last Taken Unknown] oxyCODONE HCL/ACETAMINOPHEN [Percocet 10-325 mg Tablet] 1 each PO QID 01/13/16 [ Last Taken Unknown] Fesoterodine Fumarate [Toviaz] 4 mg PO DAILY 12/08/16 [Last Taken Unknown] - History of Present Illness Narrative: Patient had recent Botox treatment done to his bladder for what he believes is interstitial cystitis and now complains of urinary retention. Patient was seen at [facility] and given a straight cath however he still continues with urinary retention and is requesting a Hernandez catheter Timing: Present: constant Quality: Present: moderate, fullness Radiation: Present: none Prior Abdominal Problems: Present: similar symptoms - with urinary retention Prior Treatment: Present: recently seen, treated by physician Review of Systems - Review of Systems Constitutional: Present: See HPI EYE: Present: no symptoms reported ENT: Present: no symptoms reported Respiratory: Present: no symptoms reported Cardiology: Present: no symptoms reported Gastrointestinal/Abdominal: Present: no symptoms reported Genitourinary: Present: See HPI Musculoskeletal: Present: no symptoms reported Skin: Present: no symptoms reported Neurological: Present: no symptoms reported Endocrine: Present: no symptoms reported Hematologic/Lymphatic: Present: no symptoms reported Psych: Present: no symptoms reported - Patient's Past Medical History Patient History - Medical: Anxiety, Arthritis, Chronic Pain, Depression, GERD, Migraines, Other - possible interstitial cystitis Patient History - Cardiac/Respiratory: Atrial Fibrillation, Coronary Heart Disease, Hypertension, Hyperlipidemia, Myocardial Infarction, Pneumonia Patient History - Cancer: No Hx of Cancer Patient History - Surgical Procedures: Back Surgery, Cholecystectomy, Other Patient History - Other: None - Social History Living Situations: home Abuse History: No History of abuse Psych History: No pertinent hx Alcohol Use: none Drug Use: none - Immunizations Immunizations Up to Date: Yes Hx Pneumococcal Vaccination: Yes History of Influenza Vaccine: Yes Physical Exam - Physical Exam General Appearance: Present: wd/wn, alert, moderate distress Head Exam: Present: normal inspection Eye Exam: Normal inspection: bilateral, PERRL: bilateral Ears, Nose, Throat: Present: normal ENT inspection, H, normal pharynx Neck: Present: normal inspection, nontender Respiratory: Present: no respiratory distress, normal breath sounds, no accessory muscle use, chest nontender, lungs clear Cardiovascular/Chest: Present: regular rate, rhythm, no murmur, normal peripheral pulses Gastrointestinal/Abdominal: Present: normal bowel sounds, nondistended, soft, no organomegaly, tenderness - suprapubic with apparently a tender bladder Rectal Exam: Present: deferred Back Exam: Present: normal inspection, normal range of motion Extremity Exam: Present: normal inspection, non-tender, no edema, normal range of motion Neurological Exam: Present: alert, oriented, normal mood/affect Skin Exam: Present: normal color, warm/dry Lymphatic Exam: Present: no adenopathy ED Progress - Vital Signs Patient's Vital Signs:: I have reviewed the patient's vital signs. Vital Signs: Vital Signs 01/10/17 13:58 Temperature 36.2 C L Pulse Rate 70 Respiratory 12 Rate Blood Pressure 139/71 O2 Sat by Pulse 95 Oximetry - Progress/Reassessment Chief Complaint: Genitourinary Problem Progress:: Improved - Transfer of Care Pending Results: Labs - UA is pending Plan - Plan Plan: Patient had little to no urine in the bladder and I suspect the pain was coming more from the Botox treatment and from either urinary retention or UTI. We do have a urinalysis pending it was suggested that the patient follow-up with his urologist. Departure Clinical Impression: Chronic bladder pain - Departure Disposition: Home self-care Condition: Good Instructions: Hernandez Catheter Care, Adult Referrals: Chase Padron MD [Primary Care Provider] -
[2017-01-10 14:33] VITALS: BP 118/69
[2017-01-10 15:07] LABS: Urine Appearance Clear; Urine Bacteria None Seen; Urine Bilirubin Negative (NEGATIVE); Urine Blood Negative /ul (NEGATIVE); Urine Color Yellow; Urine Ketone Negative (NEGATIVE); Urine Nitrite Negative (NEGATIVE); Urine Protein Negative (NEGATIVE); Urine RBC None Seen /hpf (0-5); Urine Urobilinogen Normal (NORMAL); Urine WBC None Seen /hpf (0-5)
== END 2017-01-10 15:00 | disposition home or self-care (01) ==
LOC: ER 13:42
PROC: 0T9B70Z Drainage of Bladder with Drainage Device, Via Natural or Artificial Opening (ICD-10-PCS; principal; 2017-01-10)
DX: R39.82 Chronic bladder pain (principal); I25.2 Old myocardial infarction; I10 Essential (primary) hypertension

== ENCOUNTER 2017-04-16 23:45 | Emergency (ER) | payer MEDICARE, OTHER | END 2017-04-16 23:53 | disposition left against medical advice (07) | LOC: ER 23:45 | DX: Z53.21 Procedure and treatment not carried out due to patient leaving prior to being seen by health care provider (principal) ==